=== PATIENT | male | born 1965 | race Caucasian/White ===

== ENCOUNTER → 2016-07-27 | Outpatient (CLI) | payer BC ==
[2016-07-27 11:26] LABS: BASOPHILS # (AUTO) 0.09 10*3/UL; BASOPHILS % (AUTO) 1.1 % (0-1); EOSINOPHILS % (AUTO) 2.5 % (0-8); HEMATOCRIT 46.3 % (42.0-52.0); HEMOGLOBIN 16.1 g/dL (14.0-18.0); IMM GRAN % (AUTO) 0.1 % (0-5); IMM GRAN# (AUTO) 0.01 10*3/UL; LYMPHOCYTES # (AUTO) 1.75 10*3/uL; LYMPHOCYTES % (AUTO) 21.8 % (10-50); MEAN CORPUSCULAR HEMOGLOBIN 30.6 PG (27-31); MEAN CORPUSCULAR HGB CONC 34.8 g/dL (33-37); MEAN PLATELET VOLUME 9.4 FL (7.4-12.2); MONOCYTES # (AUTO) 0.72 10*3/UL (0.3-0.8); NEUTROPHILS # (AUTO) 5.26 10*3/UL; NEUTROPHILS % (AUTO) 65.5 % (50-80); RDW COEFFICIENT OF VARIATION 13.7 % (11.5-14.5); RED BLOOD COUNT 5.27 10^6/uL (4.70-6.10); WHITE BLOOD COUNT 8.03 10^3/uL (4.8-10.8)
[2016-07-27 11:35] LABS: ASPARTATE AMINO TRANSFERASE 30 IU/L (21-57); BILIRUBIN,TOTAL 0.8 mg/dL (0.3-1.2); BLOOD UREA NITROGEN 17 mg/dL (7-22); BUN/CREATININE RATIO 24.28 (6-20); CHLORIDE 106 meq/L (98-112); CREATININE 0.7 mg/dL (0.70-1.50); EST GLOMERULAR FILTRATION > 60 (>60 ml/min/1.73m(2)); GLUCOSE 216 mg/dL (78-110); HDL CHOLESTEROL 41 mg/dL (40-150); POTASSIUM 3.9 meq/L (3.8-5.2); SODIUM 140 meq/L (135-145); TOTAL PROTEIN 6.3 g/dL (6.1-8.0); TRIGLYCERIDES 131 mg/dL (44-200)
[2016-07-27 11:36] LABS: HEMOGLOBIN A1C 8.79 % (4.2-6.0); MEAN BLOOD GLUCOSE (CALC) 206.707 mg/dL
[2016-07-27 12:05] LABS: PLATELET MORPHOLOGY COMMENT NORMAL MORPHOLOGY (NORM)
== END ==
LOC: LAB 11:10
PROVIDERS: ATTEND Family Medicine
DX: E10.65 Type 1 diabetes mellitus with hyperglycemia (principal); Z79.4 Long term (current) use of insulin; I10 Essential (primary) hypertension; R53.83 Other fatigue; K21.9 Gastro-esophageal reflux disease without esophagitis; Z96.41 Presence of insulin pump (external) (internal)
CPT/HCPCS: 36415; 80053; 80061; 83036; 84403; 84443; 85025

== ENCOUNTER 2016-08-28 12:15 | Inpatient (IN) | payer BC ==
[2016-08-28] MEDS ORDERED: ONDANSETRON 4 MG/2 ML VIAL IVP ONE (12:32)
[2016-08-28] MEDS ORDERED: Sodium Chloride 0.9% 1,000 ML PRIMARY IV ONE (12:32)
--- NOTE | 2016-08-28 12:37 | PDOC ---
Neuro Symptoms / Deficit HPI - General Chief Complaint: Neurological Complaints Stated Complaint: RIGHT SIDED NUMBNESS Date Seen by Provider: 08/28/16 Time Seen by Provider: 12:20 Source: POSITIVE: Patient, Spouse Exam Limitations: POSITIVE: No limitations Nurse's Notes Reviewed & Considered: Yes - History of Present Illness Initial Comments: Patient comes in with chief complaint of right-sided numbness. Patient was up this morning at 0500 playing his guitar, he became aware that his right side was becoming numb and had a sudden onset of weakness in his right hand. He comes in today at 12:30 PM for evaluation because of continued numbness, and feeling as though his head is fuzzy. He denies any headache, vision changes, chest pain, shortness breath, he does have a cough. He denies any fever or chills sweats, nausea vomiting or diarrhea. He denies hematuria or dysuria, no ataxia. Blood glucose on the patient's monitor is 525. Body Location Affected: REPORTS: Head, Other (Numbness of the right side of body.) Timing: REPORTS: Abrupt Duration: 4-6 hours Severity: Moderate Quality: REPORTS: Other (Numbness) Character of Deficit(s): REPORTS: Right (Right-sided numbness), New Weakness ( Right-sided weakness which has resolved.) Associated Symptoms: REPORTS: Trouble Concentrating Usual Ability to Walk/Stand: REPORTS: Walks w/o Assistance Usual Cognition: REPORTS: Alert & Oriented x3 Similar Symptoms Previously: No Recently seen/treated/hospitalized: No Any Prior Injuries Related to Current Complaint?: No - Patient Home Medications Home Medications: Home Medications Urine Acetone Test,Strips [Ketostix Reagent] 1 each QAM #1 box 08/21/15 Blood Sugar Diagnostic [Contour Next] 1 each Q2-3H #300 strip 09/26/15 Blood Sugar Diagnostic [Contour Next] 8 - 10 each QD #300 strip 09/26/15 Insulin, Lispro [Humalog] 1 - 80 unit SUBCUT QD #2 vial 05/28/16 Amlodipine Besylate 5 mg PO DAILY #90 tab 06/04/16 Simvastatin 1 tab PO DAILY #30 tab 06/04/16 Sildenafil Citrate [Revatio] 20 mg PO QD #30 tab 07/16/16 Lisinopril 1 tab PO BID #60 tab 07/17/16 Insulin Lispro Inj [Humalog Inj] Sample #1 07/23/16 Amitriptyline HCl 1 tab PO QHS #30 tab 07/28/16 Amlodipine Besylate 5 mg PO DAILY #30 tab 07/28/16 Gabapentin 1 tab PO QID #120 tab 08/21/16 - Patient Allergies Allergies/Adverse Reactions: Allergies Allergy/AdvReac Type Severity Reaction Status Date / Time Penicillins Allergy Anaphylaxis Verified 08/28/16 12:26 Past Medical History - heen HEENT History: Denies History Cardiovascular History: Denies History Respiratory History: Denies History Gastrointestinal History: Denies History Genitourinary History: Denies History Endocrine History: Type 1 Diabetes Musculoskeletal History: Denies History Neurological History: Denies History Blood Disorders: Denies History Psychiatric History: Denies History Cancer History: Denies History History of MDRO: No Alcohol Use: None Substance Use Type: None Previous Surgical History: Yes Type / Date of Surgery: APPE, LEFT HAND SURGERY Significant Family History: No pertinent family hx ROS - Limitations ROS Limitations: No Limitations Constitution: REPORTS: Denies Symptoms Cardiovascular: REPORTS: Denies Cardiac Symptoms Respiratory: REPORTS: Denies Resp Symptoms Neurological: REPORTS: Numbness, Weakness Gastrointestinal: REPORTS: Denies GI Symptoms Endocrine: REPORTS: Elevated Glucose (hx DMI) Musculoskeletal: REPORTS: Denies MS Symptoms Genitourinary: REPORTS: Denies Symptoms Eyes: REPORTS: Denies Symptoms ENT: REPORTS: Denies Symptoms Skin: REPORTS: Denies Skin Symptoms Lympathic: REPORTS: Denies Lympathic Symptoms Immunologic: POSITIVE: Denies Symptoms Psychiatric: POSITIVE: Denies Psych Symptoms Neuro Symptoms / Deficit Exam - General Appearance General Appearance: POSITIVE: No Acute Distress, Alert - HEENT HEENT: POSITIVE: Head Inspection Nml, Eyes Inspection Nml, Ears Inspection Nml, Nose Inspection Nml, Oral/Dental Inspect. Nml, Pharynx Inspect. Nml, PERRL, EOMI - Pupil Size Pupil Size: 4 mm: Bilateral - Neuro / Psych Higher Functions: POSITIVE: Oriented to Person, Oriented to Place, Oriented to Time, Normal Speech, Normal Cognition, Appropriate Mood, Appropriate Affect Cranial Nerves: POSITIVE: Normal As Tested, No Evidence of Acute CVA Cerebellar: POSITIVE: Normal As Tested Peripheral Exam: POSITIVE: Motor Normal, Reflexes Normal, Altered Light-Touch, Altered Pin-Prick Reflexes: Patellar (R): 3+, Patellar (L): 3+, Radial (R): 3+, Radial (L): 3+ - Neck Neck: POSITIVE: Supple, Non-Tender - Respiratory Respiratory: POSITIVE: No Respiratory Distress, Breath Sounds Normal - Cardiovascular Cardiovascular: POSITIVE: Regular Rate & Rhythm Murmur: Diastolic: Grade 2 - Abdomen Abdomen: Soft: (All Quadrants), Normal Bowel Sounds: (All Quadrants), Denies Tenderness: (All Quadrants) - Skin Skin: POSITIVE: Intact, Normal For Race, Warm, Dry, No Rash - Extremities Extremity: Non-Tender: (All Extremities), Normal ROM: (All Extremities), Normal Inspection: (All Extremities) Neuro Symptom/Deficit Progress - Results Reviewed by me Xrays/CTs/US Reviewed by me: Yes Discussed with Radiologist: Yes Lab Results Reviewed: Yes Lab Results:: Laboratory Results 08/28/16 Range/Units 12:37 WBC 6.19 (4.8-10.8) 10^3/uL RBC 5.56 (4.70-6.10) 10^6/uL Hgb 16.5 (14.0-18.0) g/dL Hct 49.0 (42.0-52.0) % MCV 88.1 (80-90) FL MCH 29.7 (27-31) PG MCHC 33.7 (33-37) g/dL RDW Std Deviation 44.7 (39-50) fL RDW Coeff of Erm[place] 14.0 (11.5-14.5) % Plt Count 277 (140-350) 10*3/uL MPV 9.3 (7.4-12.2) FL Immature Gran % (Auto) 0.2 (0-5) % Neut % (Auto) 63.9 (50-80) % Lymph % (Auto) 23.1 (10-50) % [place] % (Auto) 10.3 (5-15) % Eos % (Auto) 1.5 (0-8) % Baso % (Auto) 1.0 (0-1) % Immature Gran # (Auto) 0.01 10*3/UL Neut # (Auto) 3.96 10*3/UL Lymph # (Auto) 1.43 10*3/uL [place] # (Auto) 0.64 (0.3-0.8) 10*3/UL Eos # (Auto) 0.09 10*3/UL Baso # (Auto) 0.06 10*3/UL WBC Morphology Comment Normal morphology (NORM) Plt Morphology Comment Normal morphology (NORM) RBC Morph Comment Normal morphology (NORM) Sodium 137 (135-145) meq/L Potassium 4.5 (3.8-5.2) meq/L Chloride 104 (98-112) meq/L Carbon Dioxide 24 (23-33) meq/L Anion Gap 9 (5-20) BUN 18 (7-22) mg/dL Creatinine 0.9 (0.70-1.50) mg/dL Estimated GFR > 60 (>60 ml/min/1.73m(2)) BUN/Creatinine Ratio 20.00 (6-20) Glucose 488 H* (78-110) mg/dL Calculated Osmolality 307.0 H (267-292) mOsm/kg Calcium 9.4 (8.7-10.7) mg/dL Magnesium 2.0 (1.6-2.4) mg/dL Total Bilirubin 0.4 (0.3-1.2) mg/dL AST 35 (21-57) IU/L ALT 40 (21-72) IU/L Alkaline Phosphatase 65 (38-126) IU/L Total Protein 6.4 (6.1-8.0) g/dL Albumin 3.7 (3.5-4.8) g/dL Globulin 2.6 (2.50-4.10) g/dL Albumin/Globulin Ratio 1.40 (1.3-2.0) mg/g TSH 1.44 (0.2700-4.2000) uIU/mL Free T4 1.06 (0.93-1.71) ng/dL - Patient's Progress Pain Medication Addressed: POSITIVE: Not Applicable Re-Examine Time:: 15:16 Status: POSITIVE: Improved MDM / ED Course: Patient brought into the emergency Department, examined, an IV was started, blood sent to the lab for studies, imaging was obtained. Laboratory findings: MRI shows acute bland lacunar infarct of the posterior limb left internal capsule and adjacent area in the thalamus. Laboratory findings show hyperglycemia with blood glucose of 400. Assessment: Acute stroke left internal capsule. Plan: Admission. During the patient's time here in the emergency department he was started on Plavix. CVA/Syncope Quality Measure Initiative: POSITIVE: NIH Stroke Scale (Disclose a 1 for loss of sensation on the affected right side.) - Consult Consulting MD will see pt:: POSITIVE: [facility] [place] Admit Counseled: POSITIVE: Patient, RE: Lab Results, RE: Radiology Results, RE: DX Patient Care Time - Estimated PCT Patient Care Time (In Minutes): 45 Vital Signs - Recent Vital Signs Vital Signs: Vital Signs (Last 8 hours) Temp Pulse Resp BP Pulse Ox 08/28/16 12:16 97.3 F 73 14 178/98 96 - VS Reviewed Vital Signs Reviewed: Yes Discharge Clinical Impression: Cerebrovascular accident Discharge Disposition: Admit to Observation Condition: Stable Patient Instructions Given at Discharge: Ischemic Stroke (GEN) Date Decision to Admit to Inpatient: 08/28/16 Time Decision to Admit to Inpatient: 15:20
[2016-08-28 12:46] LABS: BASOPHILS # (AUTO) 0.06 10*3/UL; EOSINOPHILS % (AUTO) 1.5 % (0-8); HEMOGLOBIN 16.5 g/dL (14.0-18.0); IMM GRAN % (AUTO) 0.2 % (0-5); IMM GRAN# (AUTO) 0.01 10*3/UL; LYMPHOCYTES # (AUTO) 1.43 10*3/uL; LYMPHOCYTES % (AUTO) 23.1 % (10-50); MEAN CORPUSCULAR HEMOGLOBIN 29.7 PG (27-31); MEAN CORPUSCULAR HGB CONC 33.7 g/dL (33-37); MEAN PLATELET VOLUME 9.3 FL (7.4-12.2); MONOCYTES # (AUTO) 0.64 10*3/UL (0.3-0.8); MONOCYTES % (AUTO) 10.3 % (5-15); NEUTROPHILS # (AUTO) 3.96 10*3/UL; NEUTROPHILS % (AUTO) 63.9 % (50-80); RED BLOOD COUNT 5.56 10^6/uL (4.70-6.10); WHITE BLOOD COUNT 6.19 10^3/uL (4.8-10.8)
[2016-08-28 12:55] LABS: PLATELET MORPHOLOGY COMMENT NORMAL MORPHOLOGY (NORM)
[2016-08-28 12:58] LABS: ASPARTATE AMINO TRANSFERASE 35 IU/L (21-57); BILIRUBIN,TOTAL 0.4 mg/dL (0.3-1.2); BLOOD UREA NITROGEN 18 mg/dL (7-22); CALCIUM 9.4 mg/dL (8.7-10.7); CHLORIDE 104 meq/L (98-112); CREATININE 0.9 mg/dL (0.70-1.50); EST GLOMERULAR FILTRATION > 60 (>60 ml/min/1.73m(2)); POTASSIUM 4.5 meq/L (3.8-5.2); SODIUM 137 meq/L (135-145); TOTAL PROTEIN 6.4 g/dL (6.1-8.0)
[2016-08-28] MEDS ORDERED: Famotidine Inj 20 MG in Normal Saline Flush 10 ML IVP ONE (13:04)
[2016-08-28 13:15] LABS: FREE T4 (FREE THYROXINE) 1.06 ng/dL (0.93-1.71)
[2016-08-28 13:26] LABS: GLUCOSE 488 mg/dL (78-110)
--- NOTE | 2016-08-28 13:46 | DI ---
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 Previous Exam: None at this facility. PA and lateral views of the orbits are submitted. There is no metallic foreign body in the confines o f either orbit. Reading: Normal screening views of the orbits.
--- NOTE | 2016-08-28 14:25 | DI ---
MR ANGIOGRAPHY OF THE [place], 08/28/2016 12:32 PM: Clinical History: Numbness and weakness on the right side. Previous Exam: None at this facility. High resolution axial 3D thin slice time of flight scans are performed for the arterial phase. 3D MIP S reconstructions are obtained. Motion artifacts are noted particularly at the level of the M3 branch es. The left vertebral artery is dominant. There is no basilar tip aneurysm or aneurysm arising from the vertebral-basilar branches. There are no identifiable posterior communicating arteries. The anterior communicating artery is not visualized. The A1and A2, and the M1 through proximal M3 branches bilater ally are normal. Reading: Normal MR angiogram scan of the [place].
--- NOTE | 2016-08-28 14:37 | DI ---
MRI BRAIN SCAN WITHOUT CONTRAST, 08/28/2016 12:32 PM: Clinical History: Right-sided numbness and weakness. Previous Exam: None at this facility. Sequences: Sagittal T1; Axial ANGELICA T2 and FLAIR. Axial diffusion weighted images with ADC mapping were also performed. Motion artifacts are present on several sequences. The 4th, 3rd, and lateral ventricles are of normal size, position, and contour for this patient's age . There is congenital cortication of the body of the left lateral ventricle, a normal variant. There is increased signal intensity in the posterior limb of the left internal capsule and also in the the adjacent area of the left thalamus. ADC mapping shows a hypointense area indicating this is an acute bland lacunar infarct. There is a single punctate 4 mm diameter hyperintensity located in the white m atter of the right frontal lobe of uncertain significance. There are no extracerebral mantels or shif t of the midline structures. The paranasal sinuses are normal. There is a mass measuring about 3 cm i n diameter on the superior aspect of the skull just at the level of the coronal suture. This is of hi gh signal intensity on the T1-weighted sequences. This is not well visualized on the axial sequences but does appear to be hyperintense on the T2-weighted scans and of low signal intensity on the FLAIR scans indicating this is probably a lipoma. Readin. Acute bland lacunar infarct involving the posterior limb of the left internal capsule and the adj acent area in the thalamus. This would explain the patient's clinical symptoms. 2. There is a single focus of hyperintensity measuring 4 mm located in the white matter of the right frontal lobe in the significance of this finding is uncertain. 3. There is a mass in the scalp toward the coronal suture in the midline that probably represents a lipoma.
[2016-08-28] MEDS ORDERED: CLOPIDOGREL BISULFATE 300 MG TABLET PO ONE (15:13)
[2016-08-28] MEDS ORDERED: Insulin Lispro Flexpen 300 UNIT/3 ML INSULN.PEN SUBCUT ONE (15:43)
[2016-08-28] MEDS ORDERED: Insulin Sliding Scale Protocol SUBCUT PRN ×2 (15:43→16:40)
[2016-08-28] MEDS ORDERED: Glucagon Inj Vial 1 MG/ML VIAL IM PRN ×2 (15:43→16:40)
[2016-08-28] MEDS ORDERED: NORMAL SALINE 10 ML SYRINGE FLUSH IVP PRN (15:43)
[2016-08-28] MEDS ORDERED: DEXTROSE 31 GM GEL PO PRN ×2 (15:43→16:40)
[2016-08-28] MEDS ORDERED: DEXTROSE 50%-WATER SYRINGE 50 ML SYRINGE IVP PRN ×2 (15:43→16:40)
[2016-08-28] MEDS ORDERED: Insulin Lispro Flexpen 300 UNIT/3 ML INSULN.PEN SUBCUT SCH ×2 (16:00→21:00)
--- NOTE | 2016-08-28 16:14 | DI ---
MR ANGIOGRAM OF THE NECK, 08/28/2016 12:32 PM: Clinical History: Numbness and weakness on the right side. The MRI brain scan performed today shows a left lacunar infarct in the posterior limb of the internal capsule. Previous Exam: None at this facility. Axial 3D TOF and coronal T-SLIP images are reconstructed into a 3D MIP format. No IV contrast was use d. The coronal T-SLIP images are of very good to excellent quality. The axial 3-D [id number] imag es are degraded because of substantial motion artifacts. Scans are performed from below the sternal notch to of the neck to the base of the skull without cont rast. The origins of the carotid and vertebral arteries are not well visualized. The common carotid arterie s are normal from chest above their origins to the bifurcations. The internal and external carotid ar teries in the neck region are normal. The internal carotid arteries from the base of the skull are no rmal. Both vertebral arteries are visualized to the base of the skull and are normal. The left verteb ral artery is the dominant vessel. READIN. Technically difficult exam because of patient movement most likely related to the acute infarct. 2. The carotid arteries and vertebral arteries are visualized from just above their respective origi ns to the base of the skull and are normal.
[2016-08-28] MEDS ORDERED: Insulin Glargine SoloStar Inj 100 UNIT/ML INSULN.PEN SUBCUT ONE (16:36)
--- NOTE | 2016-08-28 17:12 | PDOC ---
History and Physical - History of Present Illness Date and Time of Service: 08/28/2016, 1710 Chief Complaint: Right-sided weakness History of Present Illness: This very pleasant 51-year-old male who has underlying diabetes mellitus, on pump therapy, tobacco abuse, hypertension, and hypercholesterolemia, who is accompanied by his girlfriend of 7 months and a domestic relationship that comes in complaining of right sided weakness. He states that he got home from work at around 2 or 3 AM and picked up his guitar play. He notices right side went numb and he was discoordinated. He said his guitar down, waited 20 minutes and went to bed. When he woke up at around 11, he told his girlfriend about his symptoms and she stated to him that he should come in for evaluation. Here he had a brain MRI and MRA of the head and neck. The MRA studies were negative for carotid artery disease and disease in the [place] of [place]. Brain MRI showed a left internal capsular stroke. He's never had a stroke before. He did not have any preceding headache, fever, chills, nausea or vomiting. He' s had some intermittent word finding problems with some slurring but has a symmetric smile and tongue movements. He has some numbness in his right tongue , his right arm feels discoordinated, and he apparently is dragging his right foot as well. He smokes a half pack per day. His father had a stroke at age 80. The patient does not drink alcohol. He did not try any interventions prior to coming into the emergency room. Nothing seems to make him feel worse or feel better. Past Medical History Medical History: Diabetes mellitus, on pump therapy. Hypertension. Tobacco abuse. Hypercholesterolemia Surgical History: Appendectomy. Left carpal tunnel repair Pertinent Family History: Father had a stroke in his 80s. 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 He is in a committed relationship that is considered a domestic partnership with his girlfriend. He tells me that she would be the person he would like to make medical decisions for him if he could not for himself. The patient does not have any children of his own. Tobacco Use: Current Every Day Smoker Do you dip or chew tobacco: No Substance Use Type: None Alcohol Use: None Medication / Allergies Home Medications: Home Medications Medication Instructions Recorded Confirmed Type Urine Acetone Test,Strips 1 each QAM #1 box 08/21/15 08/28/16 Clinic [Ketostix Reagent] Blood Sugar Diagnostic [Contour 1 each Q2-3H #300 strip 09/26/15 Clinic Next] Blood Sugar Diagnostic [Contour 8 - 10 each QD #300 strip 09/26/15 Clinic Next] Insulin, Lispro [Humalog] 1 - 80 unit SUBCUT QD #2 vial 05/28/16 08/28/16 Clinic Simvastatin 1 tab PO DAILY #30 tab 06/04/16 08/28/16 Clinic Sildenafil Citrate [Revatio] 20 mg PO QD #30 tab 07/16/16 08/28/16 Clinic Lisinopril 1 tab PO BID #60 tab 07/17/16 08/28/16 Clinic Amitriptyline HCl 1 tab PO QHS #30 tab 07/28/16 08/28/16 Clinic Amlodipine Besylate 5 mg PO DAILY #30 tab 07/28/16 08/28/16 Clinic Gabapentin 1 tab PO QID #120 tab 08/21/16 08/28/16 Clinic Allergies/Adverse Reactions: Allergies Allergy/AdvReac Type Severity Reaction Status Date / Time Penicillins Allergy Anaphylaxis Verified 08/28/16 16:11 Review of Systems - Review of Systems All Systems: Reviewed & No Additional Complaints Except as Stated (I did a 12 point review systems and other than that discussed in history present illness it was negative other than that listed below.) - Integumentary Integumentary: REPORTS: Other (Has a chronic lump in his neck that on palpation is consistent with a sebaceous cyst. This is on the right side.) - Neurological Neurologic: REPORTS: Weakness, Difficulty Walking, Incoordination, See HPI Exam - Vitals Vital Signs: Vital Signs Temperature 97.5 F Temperature Source Oral Pulse Rate [Pulse Oximeter] 77 Respiratory Rate 18 Pulse Ox 97 Oxygen Delivery Method Room Air Height 6 ft 1 in Weight 192 lb 12.8 oz Vital Signs - Last Taken Temperature 97.5 F 08/28/16 16:14 Pulse Rate 77 08/28/16 16:14 Respiratory Rate 18 08/28/16 16:14 Blood Pressure 178/98 08/28/16 12:16 Pulse Ox 97 08/28/16 16:14 On room air. - General General Appearance: POSITIVE: No Acute Distress, Cooperative - Head Head Exam: POSITIVE: Normal Inspection, Normocephalic, Atraumatic - Eye Eye Exam: POSITIVE: No Scleral Icterus - ENT ENT Exam: POSITIVE: Mucous Membranes Moist - Neck Neck Exam: POSITIVE: Normal Inspection, No Tenderness, No Thyromegaly - Respiratory Respiratory Exam: POSITIVE: Clear to Auscultation - Bilaterally, Breathing Non Labored, Normal to Percussion and Palpation - Cardiovascular Cardiovascular Exam: POSITIVE: RRR, No Murmur, No Clicks, No Gallops, No Rubs, No JVD Additional Cardiovascular Details: No carotid bruits - GI/Abdominal GI/Abdominal Exam: POSITIVE: Normal Bowel Sounds, Non Tender, Non Distended, Soft - Rectal Rectal Exam: POSITIVE: Deferred - External Exam: POSITIVE: Deferred Exam: POSITIVE: Deferred - Extremities Extremities Exam: POSITIVE: No Clubbing Present, No Edema Present, No Cyanosis Present - Back Back Exam: POSITIVE: Normal Inspection, No CVA Tenderness - Neurological Neurological Exam: POSITIVE: Alert, Oriented x 3, No Facial Droop Additional Neurological Exam Details: Normal deep tendon reflexes on the right and the left. Had some discoordination of his right arm. +4 over 5 muscle strength for right arm and right leg. Numbness sensation on his lips on the right side. Some words were occasionally slurred. No facial droop. Tongue movements negative for deviation. Extraocular muscles appear intact on standard H muscle testing. - Psychiatric Psychiatric Exam: POSITIVE: Normal Affect, Normal Mood - Integumentary Integumentary Exam: POSITIVE: Normal Color, Warm, Dry, Intact Results - Labs CBC and BMP: 08/28/16 12:37 08/28/16 12:37 Labs - Last 24 Hours: Laboratory Results 08/28/16 Range/Units 12:37 WBC 6.19 (4.8-10.8) 10^3/uL RBC 5.56 (4.70-6.10) 10^6/uL Hgb 16.5 (14.0-18.0) g/dL Hct 49.0 (42.0-52.0) % MCV 88.1 (80-90) FL MCH 29.7 (27-31) PG MCHC 33.7 (33-37) g/dL RDW Std Deviation 44.7 (39-50) fL RDW Coeff of [place] 14.0 (11.5-14.5) % Plt Count 277 (140-350) 10*3/uL MPV 9.3 (7.4-12.2) FL Immature Gran % (Auto) 0.2 (0-5) % Neut % (Auto) 63.9 (50-80) % Lymph % (Auto) 23.1 (10-50) % [place] % (Auto) 10.3 (5-15) % Eos % (Auto) 1.5 (0-8) % Baso % (Auto) 1.0 (0-1) % Immature Gran # (Auto) 0.01 10*3/UL Neut # (Auto) 3.96 10*3/UL Lymph # (Auto) 1.43 10*3/uL [place] # (Auto) 0.64 (0.3-0.8) 10*3/UL Eos # (Auto) 0.09 10*3/UL Baso # (Auto) 0.06 10*3/UL WBC Morphology Comment Normal morphology (NORM) Plt Morphology Comment Normal morphology (NORM) RBC Morph Comment Normal morphology (NORM) Sodium 137 (135-145) meq/L Potassium 4.5 (3.8-5.2) meq/L Chloride 104 (98-112) meq/L Carbon Dioxide 24 (23-33) meq/L Anion Gap 9 (5-20) BUN 18 (7-22) mg/dL Creatinine 0.9 (0.70-1.50) mg/dL Estimated GFR > 60 (>60 ml/min/1.73m(2)) BUN/Creatinine Ratio 20.00 (6-20) Glucose 488 H* (78-110) mg/dL Calculated Osmolality 307.0 H (267-292) mOsm/kg Calcium 9.4 (8.7-10.7) mg/dL Magnesium 2.0 (1.6-2.4) mg/dL Total Bilirubin 0.4 (0.3-1.2) mg/dL AST 35 (21-57) IU/L ALT 40 (21-72) IU/L Alkaline Phosphatase 65 (38-126) IU/L Total Protein 6.4 (6.1-8.0) g/dL Albumin 3.7 (3.5-4.8) g/dL Globulin 2.6 (2.50-4.10) g/dL Albumin/Globulin Ratio 1.40 (1.3-2.0) mg/g TSH 1.44 (0.2700-4.2000) uIU/mL Free T4 1.06 (0.93-1.71) ng/dL - EKG Data -: EKG Interpreted by Me (I have ordered an EKG and I am waiting for the results.) - Imaging Status: Report Reviewed by Me (The brain MRI scan is notable for left-sided internal capsule stroke. The MRA scans of the head and neck are normal. There was some motion artifact on the MRA of the neck.) Assessment and Plan - Patient Problems (1) Cerebrovascular accident Current Visit: Yes Status: Acute (2) Dehydration Current Visit: No Status: Acute (3) HTN, goal below 130/80 Current Visit: Yes Status: Acute (4) Hypercholesteremia Current Visit: Yes Status: Acute (5) Tobacco abuse Current Visit: Yes Status: Acute - Assessment / Plan Additional Assessment/Plan Details: admit the patient permissive hypertension high dose statin plavix (has an intolerance to aspirin) use pump for diabetes management with nutrition consult. The patient had pump in MRI, so glucose monitoring sensor is not functioning, but pump is still functioning check lipid panel tomorrow imaging does not indicate any carotid artery disease, but with motion on MRA of neck, will get ultrasound of carotids to confirm ECHO tele monitoring and EKG (done prior to completion of this document with NSR on my view of the tracing, no ST elevations. some pronounced QRS complexes in V2 and V3 and V4) PT and OT bedside swallow eval FULL CODE patient and girlfriend agreed with the plan.
[2016-08-28] MEDS: GABAPENTIN 300 MG CAPSULE PO SCH ×2 (17:26→21:26)
[2016-08-28] MEDS: NICOTINE 21 MG /DAY PATCH TRANSDERM SCH (17:26)
--- NOTE | 2016-08-28 17:27 | EKG ---
[address] [address] Measurements Intervals [place] Rate: 61 P: 57 UT: 194 QRS: 81 QRSD: 107 T: 49 QT: 392 QTc: 396 Interpretive Statements SINUS RHYTHM INCOMPLETE RIGHT BUNDLE BRANCH BLOCK [90+ ms QRS DURATION, TERMINAL R IN V1/V2, 40+ ms S IN I/aVL/V4/V5/V6] No previous ECG available for comparison Electronically Signed On 08-29-16 15:52:12 MST by Last Fierro MD [email or web address]
[2016-08-28] MEDS: ACETAMINOPHEN 325 MG TABLET PO PRN (19:33)
[2016-08-28] MEDS: ATORVASTATIN 40 MG TABLET PO SCH (21:26)
[2016-08-29] MEDS: ACETAMINOPHEN 325 MG TABLET PO PRN (02:55)
[2016-08-29 06:14] LABS: PROTHROMBIN TIME 10.2 secs (9.7-11.4)
[2016-08-29 06:20] LABS: ASPARTATE AMINO TRANSFERASE 37 IU/L (21-57); BILIRUBIN,TOTAL 0.5 mg/dL (0.3-1.2); BLOOD UREA NITROGEN 19 mg/dL (7-22); BUN/CREATININE RATIO 27.14 (6-20); CALCIUM 8.4 mg/dL (8.7-10.7); CHLORIDE 108 meq/L (98-112); CREATININE 0.7 mg/dL (0.70-1.50); EST GLOMERULAR FILTRATION > 60 (>60 ml/min/1.73m(2)); GLUCOSE 127 mg/dL (78-110); HDL CHOLESTEROL 36 mg/dL (40-150); POTASSIUM 4.1 meq/L (3.8-5.2); SODIUM 139 meq/L (135-145); TOTAL PROTEIN 5.9 g/dL (6.1-8.0); TRIGLYCERIDES 51 mg/dL (44-200)
[2016-08-29] MEDS: GABAPENTIN 300 MG CAPSULE PO SCH ×4 (08:05→20:32)
[2016-08-29] MEDS: ENOXAPARIN SODIUM 40 MG/0.4 ML SYRINGE SUBCUT SCH (08:05)
[2016-08-29] MEDS: CLOPIDOGREL 75 MG TABLET PO SCH (08:05)
[2016-08-29] MEDS ORDERED: NICOTINE 21 MG /DAY PATCH TRANSDERM SCH (09:00)
--- NOTE | 2016-08-29 12:19 | PT.PROG ---
Progress Note Progress Note: S: Pt reports he is feeling much better today than he did yesterday. States he is able to walk w/o dragging R foot and is not having difficulty w/ speech. O: This morning's session focused on improving LE strength, endurance, and balance, as well as UE ROM. Pt began today's session performing Nustep x 5 min. Pt performed recumbent bike x 5 min. Pt performed balance grid star drill x 5 rounds w/ B LEs w/ verbal cueing and CGA for safety. Pt performed weight shifting on trampoline x 3 min w/ CGA for safety to work on improving balance. Pt performed SLS 3 x 20 sec on trampoline w/ B UE support and verbal cueing. Pt performed box step up on #3 box 2 x 10 bilaterally w/ CGA. Pt finished w/ UE wall pulleys x 5 min. Pt ambulated ~200 to elevator and to room w/ ASSURANCE ASSOCIATE. A: Pt was able to complete all exercises during this morning's session. Pt demonstrated decreased step length and slight drop of R foot w/ gait. Pt stated he felt mildly winded a couple times during the session which is expected secondary to pt's inactivity over the past day. Pt reported he felt good at the end of the session. Continues to benefit from skilled PT to work toward discharge. P: Continue to see pt 2x/day to improve strength, endurance and balance as he works toward discharge. Francois Huntley, SPT
--- NOTE | 2016-08-29 13:17 | DI ---
HISTORY: Stroke. COMPARISON: None available. TECHNIQUE: Sonographic images were obtained through the carotids, bilaterally. FINDINGS: Examination demonstrates some mild intimal thickening. There is no elevated peak systolic velocity. There is normal antegrade flow within both vertebral arteries. There are normal ICA/CCA ratios. IMPRESSION: 1. No hemodynamically significant stenosis. NOTE: The interpreting Radiologist was not present at the time of ultrasound interrogation.
[2016-08-29] MEDS: NICOTINE 21 MG /DAY PATCH TRANSDERM SCH (15:00)
--- NOTE | 2016-08-29 16:03 | PTI REPORT ---
Thank you for the referral of Bronson Wells. He was seen on 08/28/16 for an inpatient evaluation secondary to a CVA. SUBJECTIVE: The patient is a 51-year-old male who presented to the ER this morning with right sided hand and face weakness and numbness. The patient stated that around 5-5:30 this morning he was playing guitar when he started to notice the numbness and weakness in his right upper extremity. The patient has not previously had these types of symptoms. The patient was also getting some numbness and weakness into his right lower extremity at the time of the start of the symptoms. During our evaluation the patient states that he still has weakness and numbness in his right upper extremity and face but none in his right lower extremity. The patient lives here in [place]. 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 PAST MEDICAL HISTORY: Past medical history can be found in the patient's medical record. OBJECTIVE FINDINGS: General observations: The patient is alert and oriented to setting upon PT arrival. The patient was just finishing a consult with business intelligence manager prior to our PT exam. Range of motion: The patient demonstrated bilateral upper extremity and bilateral lower extremity range of motion within functional limits. Strength: The patient's right shoulder was strength tested as 3/5 and left shoulder was 4/5. Bilateral elbow strength was 4/5. The patient did have a marked weakness with right throw out clerk vs. left throw out clerk strength. The patient demonstrated bilateral hip and knee strength of 4+/5, right ankle strength of 3+ /5, and left ankle strength of 5/5. Pain: The patient did have pain in the right shoulder with strength testing. Transfers: The patient was able to independently perform a sit to stand transfer. The patient was able to maintain a standing position for two minutes without any assistance or any marked sway. The patient was able to independently and safely perform a stand to seated transfer. Ambulation: The patient ambulated x25 feet with stand by assist x1 for safety. He did demonstrate some dragging of his right foot at times during the ambulation. Balance: The patient was able to stand eyes open in Romberg stance x1 minute without marked sway or loss of balance. With eyes closed in Romberg, the patient had a marked increase in his sway and did require contact guard assist x1 for safety. The patient was able to get into a tandem position with both the right foot in front and the left foot in front. The patient demonstrated marked sway and did require contact guard assist x1 for safety with more challenging balance activities. ASSESSMENT: The patient has good rehab potential. Problem List: Right sided weakness right upper extremity more involved vs. lower extremity Difficulties with more challenging balance activities secondary to patient remarks of weakness Short-Term Goals: To be met by discharge from inpatient: Patient will be able to ambulate at least 200 feet without assistive device and do so safely without any balance concerns. Patient will be able to ascend and descend a flight of stairs independently and safely without balance concerns. Patient will be able to perform challenging balance stances such as Romberg eyes closed and tandem without loss of balance to demonstrate decreased fall risk. Long-Term Goals: To be met following discharge from inpatient: Patient may be seen by outpatient physical therapy if deemed necessary upon discharge. TREATMENT PLAN: Patient will be seen B.I.D during the week and one time per day over the weekend as an inpatient for strengthening and balance. INITIAL TREATMENT: Treatment today consisted of the initial evaluation activities only. TUAN
--- NOTE | 2016-08-29 17:03 | PT.PROG ---
Progress Note Progress Note: S. Patient stated that he is tired this afternoon however he would go to the therapy gym. O. Patient ambulated 175 feet to the therapy gym where he performed standing balance exercises in the form of; balance grid, tandem stance, naga step overs with small and medium hurdles, airex balance with ball toss. Patient used the nu-step x 5 minutes then was left with OT for further therapy. A. Patient tolerated exercises well, he was able to perform all tasks asked of him. He continues to struggle with coordination and balance however he reported that the tasks that he was performing he would not have been able to do yesterday. Patient would continue to benefit from skilled therapy at this time. P. Continue POC.
[2016-08-29] MEDS: traMADol 50 MG TABLET PO PRN (17:38)
--- NOTE | 2016-08-29 18:09 | PDOC(PROG) ---
Date and Time of Service: 08/29/2016, 1805 Interval History: I spoke with OT, the patient has about 50% strength in his right upper extremity , some mild dragging of the right lower extremity, and the patient continues to complain of numbness in his right arm. He has shoulder pain that seems to be radiating downwards in his arm. He had a fall a while back, and has not had any x-rays. His significant other states that he was complaining of shoulder pain at that time and that was about a month ago. No chest pain and no shortness breath. No nausea or vomiting. Objective : Data - Labs CBC and BMP: 08/28/16 12:37 08/29/16 05:23 Labs - Last 24 Hours: Laboratory Results 08/29/16 Range/Units 05:23 PT 10.2 (9.7-11.4) secs INR 0.99 (0.00-5.90) N/A Sodium 139 (135-145) meq/L Potassium 4.1 (3.8-5.2) meq/L Chloride 108 (98-112) meq/L Carbon Dioxide 23 (23-33) meq/L Anion Gap 8 (5-20) BUN 19 (7-22) mg/dL Creatinine 0.7 (0.70-1.50) mg/dL Estimated GFR > 60 (>60 ml/min/1.73m(2)) BUN/Creatinine Ratio 27.14 H (6-20) Glucose 127 H (78-110) mg/dL Calculated Osmolality 291.0 (267-292) mOsm/kg Calcium 8.4 L (8.7-10.7) mg/dL Total Bilirubin 0.5 (0.3-1.2) mg/dL AST 37 (21-57) IU/L ALT 48 (21-72) IU/L Alkaline Phosphatase 49 (38-126) IU/L Total Protein 5.9 L (6.1-8.0) g/dL Albumin 3.3 L (3.5-4.8) g/dL Globulin 2.6 (2.50-4.10) g/dL Albumin/Globulin Ratio 1.20 L (1.3-2.0) mg/g Triglycerides 51 (44-200) mg/dL Cholesterol 122 (120-200) mg/dL LDL Cholesterol, Calc 75.800 mg/dL VLDL Cholesterol 10 (0-40) mg/dL HDL Cholesterol 36 L (40-150) mg/dL Cholesterol/HDL Ratio 3.38 (0-4.0) RATIO - EKG Data Rate: Normal (Normal sinus rhythm on monitor.) Objective : Exam - General General Appearance: No Acute Distress, Cooperative Additional General Exam Details: Vital Signs - Last Taken Temperature 98.1 F 08/29/16 16:58 Pulse Rate 71 08/29/16 16:58 Respiratory Rate 18 08/29/16 16:58 Blood Pressure 151/95 08/29/16 16:58 Pulse Ox 93 08/29/16 16:58 - Head Head Exam: Normal Inspection, Normocephalic, Atraumatic - Eye Eye Exam: No Scleral Icterus - Respiratory Respiratory Exam: Clear to Auscultation - Bilaterally, Breathing Non Labored - Cardiovascular Cardiovascular Exam: RRR, No Murmur, No Clicks, No Gallops, No Rubs, No JVD - GI/Abdominal GI/Abdominal Exam: Normal Bowel Sounds, Non Tender, Non Distended, Soft - Rectal Rectal Exam: Deferred - External Exam: Deferred Exam: Deferred - Extremities Extremities Exam: No Clubbing Present, No Edema Present, No Cyanosis Present - Neurological Neurological Exam: Alert, Oriented x 3, No Facial Droop, Speech Intact / Clear Additional Neurological Exam Details: No slurring of words today. Muscle strength for upper extremity and lower extremity on the right are +4 over 5. Patient still has numbness in his right arm and the right side of his face and tongue. Assessment and Plan - Patient Problems (1) Cerebrovascular accident Current Visit: Yes Status: Acute (2) HTN, goal below 130/80 Current Visit: Yes Status: Acute (3) Hypercholesteremia Current Visit: Yes Status: Acute (4) Tobacco abuse Current Visit: Yes Status: Acute - Assessment / Plan Additional Assessment/Plan Details: We will get a modified barium swallow study with OT done on Thursday. Continue high-dose cholesterol, Plavix, and we will gradually on blood pressure medications back probably Thursday or Thursday, but for now continue permissive hypertension in the setting of this acute event. With the shoulder pain not like to get an x-ray to make sure there is no issues there. Tramadol for pain. Continue PT and OT.
[2016-08-29] MEDS: ATORVASTATIN 40 MG TABLET PO SCH (20:32)
[2016-08-30] MEDS: NICOTINE 21 MG /DAY PATCH TRANSDERM SCH (01:53)
[2016-08-30 07:24] VITALS: RESP 20
[2016-08-30] MEDS: CLOPIDOGREL 75 MG TABLET PO SCH (08:08)
[2016-08-30] MEDS: ENOXAPARIN SODIUM 40 MG/0.4 ML SYRINGE SUBCUT SCH (08:08)
[2016-08-30] MEDS: GABAPENTIN 300 MG CAPSULE PO SCH ×2 (08:08→12:41)
[2016-08-30] MEDS: traMADol 50 MG TABLET PO PRN (08:08)
[2016-08-30 12:44] VITALS: TEMP 98
--- NOTE | 2016-08-30 13:04 | OT.PROG ---
Progress Note Progress Note: S"Pt. stating his right shoulder pain was a 4/10. O:Pt's R shoulder K-taped and pt. okay too continue with therapy. Pt. seen from 09 to 5 and pt. completing sit to stand transfer from bed without AE with SBA. pt then ambulating from his room to therapy with SBA. Pt. then engaged in ther-ex on Nu-step and on resistance level 3 comleting ther-ex for 15 min of continuous ex's. Pt. then completed sit to stand transfer again without AE and ambulated back to his room wtih SBA and no episodes of LOB. A: Pt. stating increased comfort levels and R shoulder support following K taping. Pt. does not appear to have extensive residual deficits yet his coordination and processing speed are delayed and it is noted in his speech as well. P: Continue POC. Yumi Wills OTD, OTR/L
--- NOTE | 2016-08-30 13:55 | DCSUMMARY ---
Hospitalization Summary Admit Date: 08/28/16 Discharge Date: 08/30/16 Primary Diagnosis:: left cerebrovascular accident, right hemiparesis Hospital Course: This very pleasant 51-year-old male with underlying diabetes mellitus type I, tobacco abuse, and hypertension, who came in with a stroke with right hemiparesis, numbness, and was admitted for further evaluation and management. 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 The patient was placed on Plavix, physical therapy was ordered, occupational therapy was ordered, and he is regaining his strength it's probably at around 75% back to normal now. Numbness is decreasing. We did permissive hypertension but will now start to resume his blood pressure medications. The patient is intolerant of aspirin so we will continue to avoid that due to his intolerance. I had the patient walk around the rice today and he did that without any assistive devices and his balance appeared normal and his gait appeared normal. I think he should continue to do physical therapy outside the hospital, and follow with his primary care provider within a week. We work on smoking cessation, the patient wants to continue to do the nicotine patches outside hospital side prescribed a month worth of those. Blood sugars were managed with the patient's pump and the nutrition therapy helped the patient resume his pump therapy here. His blood sugars were well controlled through the hospital stay. Today, no completes of chest pain, no shortness breath, no nausea or vomiting, strength is improving, gait has improved, and patient is able to speak much more clearly and he would like to go home. Assessment and Plan: 1. As per discharge assessments noted 2. Disposition: Patient is discharged home 3. Condition on discharge, stable and improved. 4. Diet: regular diet/low cholesterol/low fat 5. Activities: resume normal activities 6. Follow-Up: 1. See Dr. Powell in a week 2. 7. Medications at the Time of Discharge: Home Medications Medication Instructions Recorded Confirmed Type Urine Acetone Test,Strips 1 each QAM #1 box 08/21/15 08/28/16 Clinic [Ketostix Reagent] Blood Sugar Diagnostic [Contour 1 each Q2-3H #300 strip 09/26/15 Clinic Next] Blood Sugar Diagnostic [Contour 8 - 10 each QD #300 strip 09/26/15 Clinic Next] Insulin, Lispro [Humalog] 1 - 80 unit SUBCUT QD #2 vial 05/28/16 08/28/16 Clinic Sildenafil Citrate [Revatio] 20 mg PO QD #30 tab 07/16/16 08/28/16 Clinic Lisinopril 1 tab PO BID #60 tab 07/17/16 08/28/16 Clinic Amlodipine Besylate 5 mg PO DAILY #30 tab 07/28/16 08/28/16 Clinic Gabapentin 1 tab PO QID #120 tab 08/21/16 08/28/16 Clinic Atorvastatin Calcium [Lipitor] 80 mg PO QPM #30 tablet 08/30/16 Rx Clopidogrel [Plavix] 75 mg PO DAILY #90 tab 08/30/16 Rx Nicotine 21mg Patch [Nicoderm CQ 21 mg TD QD #30 patch 08/30/16 Rx 21mg Patch] 8. Time, care, counseling and coordination of care for this discharge is less than 30 minutes. Exam - Vitals Vital Signs: Vital Signs Temperature 98.0 F Temperature Source Temporal Artery Scan Pulse Rate [Telemetry] 70 Pulse Rate [Apical] 78 Pulse Rate [Pulse Oximeter] 69 Pulse Rate 76 Respiratory Rate 20 Blood Pressure [Left Arm] 174/105 Pulse Ox 93 Oxygen Delivery Method Room Air Height 6 ft 1 in Weight 190 lb - General General Appearance: POSITIVE: No Acute Distress, Cooperative - Head Head Exam: POSITIVE: Normal Inspection, Normocephalic, Atraumatic - Eye Eye Exam: POSITIVE: No Scleral Icterus - Respiratory Respiratory Exam: POSITIVE: Clear to Auscultation - Bilaterally, Breathing Non Labored - Cardiovascular Cardiovascular Exam: POSITIVE: RRR, No Murmur, No Clicks, No Gallops, No Rubs, No JVD - GI/Abdominal GI/Abdominal Exam: POSITIVE: Normal Bowel Sounds, Non Tender, Non Distended, Soft - Extremities Extremities Exam: POSITIVE: No Clubbing Present, No Edema Present, No Cyanosis Present - Neurological Neurological Exam: POSITIVE: Alert, Oriented x 3, Normal Gait, No Facial Droop, Speech Intact / Clear Additional Neurological Exam Details: The right upper extremity is perceptibly different in terms of its strength compared to the left, but that Is decreasing. I would say he is probably got about 80% of his strength back now. - Psychiatric Psychiatric Exam: POSITIVE: Normal Affect, Normal Mood Data Perinent Studies: Laboratory Results 08/28/16 08/29/16 Range/Units 12:37 05:23 WBC 6.19 (4.8-10.8) 10^3/uL RBC 5.56 (4.70-6.10) 10^6/uL Hgb 16.5 (14.0-18.0) g/dL Hct 49.0 (42.0-52.0) % MCV 88.1 (80-90) FL MCH 29.7 (27-31) PG MCHC 33.7 (33-37) g/dL RDW Std Deviation 44.7 (39-50) fL RDW Coeff of Ermelinda 14.0 (11.5-14.5) % Plt Count 277 (140-350) 10*3/uL MPV 9.3 (7.4-12.2) FL Immature Gran % (Auto) 0.2 (0-5) % Neut % (Auto) 63.9 (50-80) % Lymph % (Auto) 23.1 (10-50) % [place] % (Auto) 10.3 (5-15) % Eos % (Auto) 1.5 (0-8) % Baso % (Auto) 1.0 (0-1) % Immature Gran # (Auto) 0.01 10*3/UL Neut # (Auto) 3.96 10*3/UL Lymph # (Auto) 1.43 10*3/uL [place] # (Auto) 0.64 (0.3-0.8) 10*3/UL Eos # (Auto) 0.09 10*3/UL Baso # (Auto) 0.06 10*3/UL WBC Morphology Comment Normal morphology (NORM) Plt Morphology Comment Normal morphology (NORM) RBC Morph Comment Normal morphology (NORM) PT 10.2 (9.7-11.4) secs INR 0.99 (0.00-5.90) N/A Sodium 137 139 (135-145) meq/L Potassium 4.5 4.1 (3.8-5.2) meq/L Chloride 104 108 (98-112) meq/L Carbon Dioxide 24 23 (23-33) meq/L Anion Gap 9 8 (5-20) BUN 18 19 (7-22) mg/dL Creatinine 0.9 0.7 (0.70-1.50) mg/dL Estimated GFR > 60 > 60 (>60 ml/min/1.73m(2)) BUN/Creatinine Ratio 20.00 27.14 H (6-20) Glucose 488 H* 127 H (78-110) mg/dL Calculated Osmolality 307.0 H 291.0 (267-292) mOsm/kg Calcium 9.4 8.4 L (8.7-10.7) mg/dL Magnesium 2.0 (1.6-2.4) mg/dL Total Bilirubin 0.4 0.5 (0.3-1.2) mg/dL AST 35 37 (21-57) IU/L ALT 40 48 (21-72) IU/L Alkaline Phosphatase 65 49 (38-126) IU/L Total Protein 6.4 5.9 L (6.1-8.0) g/dL Albumin 3.7 3.3 L (3.5-4.8) g/dL Globulin 2.6 2.6 (2.50-4.10) g/dL Albumin/Globulin Ratio 1.40 1.20 L (1.3-2.0) mg/g Triglycerides 51 (44-200) mg/dL Cholesterol 122 (120-200) mg/dL LDL Cholesterol, Calc 75.800 mg/dL VLDL Cholesterol 10 (0-40) mg/dL HDL Cholesterol 36 L (40-150) mg/dL Cholesterol/HDL Ratio 3.38 (0-4.0) RATIO TSH 1.44 (0.2700-4.2000) uIU/mL Free T4 1.06 (0.93-1.71) ng/dL [facility] Patient Problems - Patient Problem List (1) Cerebrovascular accident Current Visit: Yes Status: Acute (2) HTN, goal below 130/80 Current Visit: Yes Status: Acute (3) Hypercholesteremia Current Visit: Yes Status: Acute (4) Tobacco abuse Current Visit: Yes Status: Acute (5) Dysphasia Current Visit: Yes Status: Acute Comment: I think likely related to an esophageal stricture.
[2016-08-30] MEDS ORDERED: Patch Removal PATCH TRANSDERM SCH (16:00)
--- NOTE | 2016-09-01 08:45 | DI ---
XR SHOULDER MIN 2VW,08/29/2016 6:23 PM: Clinical History: Right shoulder pain after a fall. Previous Exam: None at this facility. Findings: Multiple views of the right shoulder are obtained, and demonstrate anatomic alignment without fractur es. The surrounding soft tissues are unremarkable. The adjacent right lung and chest wall are unremar kable. Impression: No fracture.
--- NOTE | 2016-09-01 16:57 | OTI REPORT ---
Thank you for the referral of Bronson Wells. He was seen on 08/29/16 for an occupational therapy inpatient evaluation secondary to a CVA. SUBJECTIVE: The patient is a 51-year-old male who is being seen secondary to having right sided weakness. He had a left internal capsular stroke. 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 The patient does live with a significant other. He has a trailer and states he has to ascend and descend three stairs but once inside the trailer, it is one level. His bathroom set up includes a tub/shower combination. He sleeps in a standard bed. Prior to admission the patient was independent in his mobility without DME. The patient does have his girlfriend to help him with anything if needed. When asked about swallowing, the patient states occasionally it "feels like something is stuck". He says that he feels like something has been in his throat since his stroke and he really notices it after eating a meal; he states it makes him cough. The patient states his whole ride side is numb including his tongue, face, shoulder, elbow, and hand area. He has difficulty with coordination and feels like his hand coordination is very decreased. PAST MEDICAL HISTORY: Past medical history can be found in the patient's medical record. OBJECTIVE FINDINGS: Today we did a small swallow evaluation with liquids and food. The patient described the place where he feels the food is getting stuck as being two inches below the pharyngeal hyoid cartilage region; it may be more towards the esophageal region. The therapist assessed the patient's ability to eat food and drink liquid. We tried several compensatory strategies including chin tucks , lateral head movement to the left with a chin tuck and swallow, and lateral movement to the right with a chin tuck and swallow. He reports that the chin tuck with his head to the left improved his ability to get the food down. The patient still feels like things get stuck quite frequently. This was discussed with Dr. Thibodeaux today after the evaluation took place. We will set up a modified barium swallow study. Radiology will not be available until Thursday afternoon. The patient does have some trouble with medications; he feels like they get stuck as well. Range of motion: The patient had upper extremity range of motion that was within functional limits for the shoulder, elbow, and hand; however, he does have decreased coordination in the right side compared to the left. Strength: The patient has gross grasp on the right side of 55 pounds and 75 pounds on the left side. Strength was tested with the microfet and is as follows: shoulder flexion on the right was 14 pounds and shoulder flexion on the left was 26.5 pounds. Abduction on the right was 12.2 pounds and abduction on the left was 25.8 pounds. External rotation was 19.4 pounds on the right and 31.5 pounds on the left. Internal rotation was 16.2 pounds on the right and 31.6 pounds on the left. Lateral pinch strength on the right was 7.5 pounds and was 20.1 pounds on the left. Two finger pinch on the right was 15.2 pounds and on the left was 16.5 pounds. Nine hole peg test: Left was 31 seconds and right was 36 seconds. Adams Nicola: The patient has decreased protective sense in the volar and dorsum part of his right hand. ASSESSMENT: Problem List: Decreased coordination Decreased strength Patient will complete a modified barium swallow study on Thursday Decreased protective sensation on the right hand, right upper extremity, face , and tongue Patient would benefit from swallow strengthening exercises and compensatory strategies Short-Term Goals: To be met by discharge from inpatient: Patient will improve his baseline microfet scores by 50%. Patient will improve gross grasp by 10 pounds. Patient will improve by 5 seconds on the 9 hole peg test to improve coordination. Patient will learn three safety techniques to utilize during hot/cold tasks secondary to his decreased protective sense. Long-Term Goals: To be met following discharge from inpatient: Patient will be able to return home, demonstrating safety and independence with all higher level functional tasks and ADLs. TREATMENT PLAN: Patient will be seen B.I.D during the week and one time per day over the weekend as an inpatient to address the above goals and objectives. INITIAL TREATMENT: Treatment today consisted of the initial evaluation activities only. MTDD
--- NOTE | 2016-09-02 09:19 | OT PM DAY ---
Diagnosis : Cerebral Vascular Accident PM - Occupational Therapy S: The patient reports he feels like therapy would be very beneficial after he heard the measurements from this morning from his right upper extremity loss of strength. O: Today we worked on gross motor strengthening for the right upper extremity including wall pulleys with four kilograms for shoulder extension and rows and two kilograms for shoulder adduction and biceps curls x15 repetitions. He also did power web and digi-flex for hand strengthening. The patient then worked on coordination activities including nut and bolt activities for tip pinch, clothespins, and picking up small coins with one hand and getting them out of hand with other hand. A: The patient participated well in therapy today. P: Continue seeing patient BID during the week and one time per day over the weekend for upper extremity strengthening, ADLs, and overall functional mobility. TUAN
== END 2016-08-30 14:25 | disposition home or self-care (01) | DRG 65 ==
LOC: ER 12:15 → MED/SURG 15:13
PROVIDERS: ADMIT Family Medicine; ATTEND Family Medicine
DX: I63.9 Cerebral infarction, unspecified (principal); G81.91 Hemiplegia, unspecified affecting right dominant side; E10.9 Type 1 diabetes mellitus without complications; Z79.4 Long term (current) use of insulin; Z72.0 Tobacco use; I10 Essential (primary) hypertension; R47.02 Dysphasia
CPT/HCPCS: 36415; 70030; 70544; 70547; 70551; 73030; 80053; 80061; 82948; 83735; 84311; 84439; 84443; 85025; 85610; 93005; 93010; 93306; 93880; 94761; 96361; 96374; 96375; 97110; 97162; 97167; 97530; 99285; J1650; J2405; J7030

== ENCOUNTER → 2016-10-17 | Outpatient (CLI) | payer BC ==
--- NOTE | 2016-10-17 09:50 | DI ---
XR ESOPHAGRAM,10/17/2016 9:19 AM: Clinical History: Dysphagia. Previous Exam: None at this facility. Findings: Multiple views from an esophagram are obtained, and demonstrate normal course and caliber of the esop hagus. Patient was given a 13 mm barium pill which was temporarily suspended in the upper esophagus just abo ve the aortic knob. The patient stated that this replicated his symptoms with food being stuck. The pill passed promptly after the patient was given a swallow of thin barium. The esophagus demonstrated a normal course and caliber with a normal gastroesophageal junction. The stomach was normal except for a large paraesophageal hiatal hernia with a big portion of the maddy miya cardia within the chest cavity. There was some reflux seen during the exam to the level of the midesophagus. Impression: 1. Suspicion of a 13 mm area pellet in the proximal third of the esophagus which duplicated patient's symptoms however, there is no stricture identified in this area. 2. Large paraesophageal hiatal hernia. Recommend surgical consultation for further evaluation.
== END ==
LOC: RAD 09:18
PROVIDERS: ATTEND Surgery
DX: R47.02 Dysphasia (principal)
CPT/HCPCS: 74220

== ENCOUNTER 2017-01-20 02:08 | Inpatient (IN) | payer BC ==
[2017-01-20] MEDS ORDERED: INSULIN REGULAR, HUMAN 100 UNIT/1 ML - 3 ML IV ONE (02:26)
[2017-01-20] MEDS ORDERED: ONDANSETRON 4 MG/2 ML VIAL IVP ONE (02:26)
--- NOTE | 2017-01-20 02:32 | PDOC ---
Gen Adult / Medical Screen HPI - General Chief Complaint: General Medical Stated Complaint: HIGH BLOOD GLUCOSE Date Seen by Provider: 01/20/17 Time Seen by Provider: 02:28 Source: POSITIVE: Patient Exam Limitations: POSITIVE: No limitations Nurse's Notes Reviewed & Considered: Yes - Indicators Temperature Between 95 and 101 Degrees: Yes Respirations Between 12 and 20: Yes Blood Pressure Between 100-165 (sys) and 60-100 (woodard): Yes Pulse Range Between 60-105 (100 for age > 60 years): Yes Severe Pain (Greater than 5/10 Reported): No Chest or Abdominal Pain: No Inability to Walk: No Pt Reports Active High Risk Cond. (TB/Hepatitis/HIV/Chemo): No Abnormal Mental Status: No - History of Present Illness Initial Comments: This pleasant 51-year-old male who is a type I diabetic comes in today with chief complaint of high blood sugars. Patient has been having increased blood sugars now with vomiting. He states he vomits when he tries to drink water. He has had increased thirst. He is presently on a insulin pump receiving 1.5 units per hour of Humalog. He denies any headache, chest pain or shortness of breath, no diarrhea, no fever chills or sweats. Timing: REPORTS: Unknown Duration: Unknown Similar Symptoms Previously: Yes Recent Care Received: REPORTS: Denies Any Prior Injuries Related to Current Complaint?: No - Patient Home Medications Home Medications: Home Medications Urine Acetone Test,Strips [Ketostix Reagent] 1 each QAM #1 box 08/21/15 Blood Sugar Diagnostic [Contour Next] 1 each Q2-3H #300 strip 09/26/15 Blood Sugar Diagnostic [Contour Next] 8 - 10 each QD #300 strip 09/26/15 Lisinopril 1 tab PO BID #60 tab 07/17/16 Gabapentin 1 tab PO QID #120 tab 08/21/16 Amitriptyline HCl 1 tab PO QHS #30 tab 09/08/16 Amlodipine Besylate 5 mg PO BID #60 tab 09/08/16 Clopidogrel Bisulfate [Plavix] 75 mg PO DAILY #90 tab 10/03/16 Nicotine [Nicotine Patch] 21 mg TD QD #30 patch 10/09/16 Lansoprazole [Prevacid] 30 mg PO DAILY #90 cap 10/30/16 Atorvastatin Calcium [Lipitor] 80 mg PO QPM #90 tablet 11/07/16 Tadalafil [Cialis] 1 tab PO DAILY #30 tab 12/08/16 Insulin, Lispro [Humalog] 1 - 80 unit SUBCUT QD #2 vial 12/18/16 - Patient Allergies Allergies/Adverse Reactions: Allergies Allergy/AdvReac Type Severity Reaction Status Date / Time Penicillins Allergy Anaphylaxis Verified 01/20/17 02:23 Past Medical History - heen HEENT History: Denies History Cardiovascular History: Denies History Respiratory History: Denies History Additional Respiratory History: SMOKER Gastrointestinal History: Denies History Genitourinary History: Denies History Endocrine History: Type 1 Diabetes Musculoskeletal History: Denies History Neurological History: Denies History Blood Disorders: Denies History Psychiatric History: Denies History Cancer History: Denies History History of MDRO: No Alcohol Use: None Substance Use Type: None Previous Surgical History: Yes Type / Date of Surgery: APPE, LEFT HAND SURGERY Significant Family History: No pertinent family hx ROS - Limitations ROS Limitations: No Limitations Constitution: REPORTS: Denies Symptoms Cardiovascular: REPORTS: Denies Cardiac Symptoms Respiratory: REPORTS: Denies Resp Symptoms Neurological: REPORTS: Denies Neuro Symptoms Gastrointestinal: REPORTS: Nausea, Vomitting Endocrine: REPORTS: Elevated Glucose, Polydypsia Musculoskeletal: REPORTS: Denies MS Symptoms Genitourinary: REPORTS: Denies Symptoms Eyes: REPORTS: Denies Symptoms ENT: REPORTS: Denies Symptoms Skin: REPORTS: Denies Skin Symptoms Lympathic: REPORTS: Denies Lympathic Symptoms Immunologic: POSITIVE: Denies Symptoms Psychiatric: POSITIVE: Denies Psych Symptoms Gen Adult/Medical Screen Exam - General Appearance General Appearance: POSITIVE: Alert, Cooperative, No Acute Distress, No Evidence of Trauma - HEENT HEENT: POSITIVE: Head Inspection Nml, Eyes Inspection Nml, Ears Inspection Nml, Pharynx Inspect. Nml, PERRL, EOMI, Dry Mucous Membranes - Pupils Pupil Size: 4 mm: Bilateral - Neck Neck: POSITIVE: Normal Inspection, Thyroid Normal - Respiratory Respiratory: POSITIVE: No Respiratory Distress, Breath Sounds Normal, Chest Non- Tender - Cardiovascular Cardiovascular: POSITIVE: Regular Rate & Rhythm, No Murmur, No Gallop, PMI Normal - Abdomen Abdomen: Soft: (All Quadrants), Normal Bowel Sounds: (All Quadrants), Denies Tenderness: (All Quadrants), No Splenomegaly: (All Quadrants), No Hepatomegaly: (All Quadrants), No Guarding: (All Quadrants), No Rebound: (All Quadrants), No Palpable Pulse: (All Quadrants), No Palpabale Mass: (All Quadrants), No Distention: (All Quadrants), No Rigidity: (All Quadrants) - Back Back: POSITIVE: Normal Inspection - Neurological / Psychological Mental Status: POSITIVE: Mood Normal, Affect Normal Orientation: POSITIVE: Oriented x 3 - Skin Skin: POSITIVE: Normal Color, Warm, Dry, No Rash - Extremities Extremity: Non-Tender: (All Extremities), Normal ROM: (All Extremities), Normal Inspection: (All Extremities) Procedures - Laceration/Wound Repair Did patient have a laceration repair: No Gen Adlt/Medical Scrn Progress - Results Reviewed by me Xrays/CTs/US Reviewed by me: Yes Discussed with Radiologist: Yes Lab Results Reviewed: Yes Lab Results:: Laboratory Results 01/20/17 01/20/17 Range/Units 02:05 02:35 WBC 11.70 H (4.8-10.8) 10^3/uL RBC 5.28 (4.70-6.10) 10^6/uL Hgb 16.1 (14.0-18.0) g/dL Hct 47.1 (42.0-52.0) % MCV 89.2 (80-90) FL MCH 30.5 (27-31) PG MCHC 34.2 (33-37) g/dL RDW Std Deviation 44.8 (39-50) fL RDW Coeff of Ermelinda 13.9 (11.5-14.5) % Plt Count 245 (140-350) 10*3/uL MPV 10.4 (7.4-12.2) FL Immature Gran % (Auto) 0.3 (0-5) % Neut % (Auto) 87.4 H (50-80) % Lymph % (Auto) 7.1 L (10-50) % Hawkins % (Auto) 4.3 L (5-15) % Eos % (Auto) 0.2 (0-8) % Baso % (Auto) 0.7 (0-1) % Immature Gran # (Auto) 0.04 10*3/UL Neut # (Auto) 10.23 10*3/UL Lymph # (Auto) 0.83 10*3/uL Hawkins # (Auto) 0.50 (0.3-0.8) 10*3/UL Eos # (Auto) 0.02 10*3/UL Baso # (Auto) 0.08 10*3/UL WBC Morphology Comment Normal morphology (NORM) Plt Morphology Comment Normal morphology (NORM) RBC Morph Comment Normal morphology (NORM) Sodium 135 (135-145) meq/L Potassium 5.0 (3.8-5.2) meq/L Chloride 101 (98-112) meq/L Carbon Dioxide 16 L (23-33) meq/L Anion Gap 18 (5-20) BUN 22 (7-22) mg/dL Creatinine 0.9 (0.70-1.50) mg/dL Estimated GFR > 60 (>60 ml/min/1.73m(2)) BUN/Creatinine Ratio 24.44 H (6-20) Glucose 535 H* (78-110) mg/dL Mean Blood Glucose 202.378 mg/dL Hemoglobin A1c 8.66 H (4.2-6.0) % Calculated Osmolality 306.0 H (267-292) mOsm/kg Lactic Acid 2.8 H (0.70-2.10) MMOL/L Calcium 8.9 (8.7-10.7) mg/dL Magnesium 1.8 (1.6-2.4) mg/dL Total Bilirubin 0.9 (0.3-1.2) mg/dL AST 31 (21-57) IU/L ALT 59 (21-72) IU/L Alkaline Phosphatase 61 (38-126) IU/L Total Protein 5.8 L (6.1-8.0) g/dL Albumin 3.6 (3.5-4.8) g/dL Globulin 2.2 L (2.50-4.10) g/dL Albumin/Globulin Ratio 1.60 (1.3-2.0) mg/g Lipase 33 (23-300) IU/L TSH 1.22 (0.2700-4.2000) uIU/mL Acetone Level Pending - Patient's Progress Pain Medication Addressed: POSITIVE: Not Applicable Re-Examine Time: 04:03 Status: POSITIVE: Improved MDM / ED Course: Patient was evaluated, an IV started, blood drawn and sent to the lab for studies, radiographic examination was obtained. Findings: CBC shows white count elevated over 11. Comprehensive metabolic panel shows glucose of 535. Lactic acid is 2.8. Acetone levels are pending. Chest x-rays and normal chest radiograph. Hemoglobin A1c is over 8. ER course: Patient received 2 L of normal saline and 10 units of regular insulin. His glucose dropped from 535-440. Assessment: Diabetic ketoacidosis. Plan: Admission, fluid resuscitation, insulin drip. - Consult Consult (If Yes, Name of Consulting MD & Time Called): Yes (Dr. Thibodeaux [id number]) Consulting MD will see pt:: POSITIVE: [facility] [place] Admit Counseled: POSITIVE: Patient, RE: Lab Results, RE: Radiology Results, RE: DX Patient Care Time - Estimated PCT Patient Care Time (In Minutes): 45 Vital Signs - Recent Vital Signs Vital Signs: Vital Signs (Last 8 hours) Temp Pulse Resp BP Pulse Ox 01/20/17 02:08 98.0 F 87 18 94/64 93 - VS Reviewed Vital Signs Reviewed: Yes Discharge Clinical Impression: Diabetic ketoacidosis Discharge Disposition: Admit to Inpatient Condition: Stable Date Decision to Admit to Inpatient: 01/20/17 Time Decision to Admit to Inpatient: 04:07
[2017-01-20 02:41] LABS: BASOPHILS # (AUTO) 0.08 10*3/UL; BASOPHILS % (AUTO) 0.7 % (0-1); EOSINOPHILS # (AUTO) 0.02 10*3/UL; EOSINOPHILS % (AUTO) 0.2 % (0-8); HEMATOCRIT 47.1 % (42.0-52.0); HEMOGLOBIN 16.1 g/dL (14.0-18.0); LYMPHOCYTES # (AUTO) 0.83 10*3/uL; MEAN CORPUSCULAR HEMOGLOBIN 30.5 PG (27-31); MEAN CORPUSCULAR HGB CONC 34.2 g/dL (33-37); MEAN CORPUSCULAR VOLUME 89.2 FL (80-90); MEAN PLATELET VOLUME 10.4 FL (7.4-12.2); MONOCYTES % (AUTO) 4.3 % (5-15); NEUTROPHILS # (AUTO) 10.23 10*3/UL; NEUTROPHILS % (AUTO) 87.4 % (50-80); PLATELET MORPHOLOGY COMMENT NORMAL MORPHOLOGY (NORM); RBC MORPHOLOGY COMMENT NORMAL MORPHOLOGY (NORM); RED BLOOD COUNT 5.28 10^6/uL (4.70-6.10); WBC MORPHOLOGY COMMENT NORMAL MORPHOLOGY (NORM)
[2017-01-20 02:49] LABS: ACETONE, SERUM SMALL (NEGATIVE)
[2017-01-20] MEDS: Sodium Chloride 0.9% 2,000 ML PRIMARY IV ONE ×3 (02:50→04:49)
[2017-01-20 02:52] LABS: HEMOGLOBIN A1C 8.66 % (4.2-6.0)
[2017-01-20 02:54] LABS: BLOOD UREA NITROGEN 22 mg/dL (7-22); BUN/CREATININE RATIO 24.44 (6-20); CALCIUM 8.9 mg/dL (8.7-10.7); EST GLOMERULAR FILTRATION > 60 (>60 ml/min/1.73m(2)); LIPASE 33 IU/L (23-300); MAGNESIUM 1.8 mg/dL (1.6-2.4); SERUM ALBUMIN 3.6 g/dL (3.5-4.8)
--- NOTE | 2017-01-20 03:41 | DI ---
PRELIMINARY REPORT ONLY HISTORY: Elevated glucose. FINDINGS: Large hiatal hernia, otherwise normal chest X-ray. IMPRESSION: 1. Large hiatal hernia, otherwise normal chest X-ray.
[2017-01-20] MEDS ORDERED: Insulin Regular Inj 100 UNIT in Sodium Chloride 0.9% 99 ML IV SCH (04:15)
[2017-01-20] MEDS ORDERED: Sodium Chloride 0.9% 100 ML IV ONE (04:38)
[2017-01-20 04:50] LABS: BILIRUBIN,URINE NEGATIVE (NEG); CLARITY,URINE CLEAR (CLEAR); COLOR,URINE YELLOW; GLUCOSE, URINE (UA) 500 mg/dL (NEG); NITRATE,URINE NEGATIVE (NEG); OCCULT BLOOD,URINE NEGATIVE (NEG); PROTEIN,URINE NEGATIVE (NEG); UROBILINOGEN,URINE 0.2 EU/dL (0.2)
[2017-01-20 04:52] LABS: URINE SAMPLE TYPE CLEAN CATCH URINE
[2017-01-20] MEDS ORDERED: D5-1/2NS 1,000 ML PRIMARY IV ONE (05:03)
[2017-01-20] MEDS ORDERED: Sodium Chloride 0.9% 1,000 ML PRIMARY IV SCH (06:14)
[2017-01-20] MEDS ORDERED: LIDOCAINE W/ SODIUM BICARB 0.5 ML SYR SUBD PRN (06:14)
[2017-01-20] MEDS ORDERED: NORMAL SALINE 10 ML SYRINGE FLUSH IVP PRN (06:14)
[2017-01-20] MEDS ORDERED: ONDANSETRON 4 MG/2 ML VIAL IVP PRN (06:14)
[2017-01-20] MEDS ORDERED: ACETAMINOPHEN 325 MG TABLET PO PRN (06:14)
[2017-01-20 06:30] LABS: MAGNESIUM 1.9 mg/dL (1.6-2.4)
[2017-01-20 06:57] LABS: BLOOD UREA NITROGEN 21 mg/dL (7-22); BUN/CREATININE RATIO 26.25 (6-20); CALCIUM 8.2 mg/dL (8.7-10.7); EST GLOMERULAR FILTRATION > 60 (>60 ml/min/1.73m(2)); PHOSPHORUS 2.8 mg/dl (2.4-4.3)
[2017-01-20] MEDS: Insulin Regular Inj 100 UNIT in Sodium Chloride 0.9% 99 ML IV SCH ×2 (08:00→19:09)
[2017-01-20] MEDS: D5-1/2NS 1,000 ML PRIMARY IV SCH ×3 (08:24→23:38)
[2017-01-20] MEDS ORDERED: Pantoprazole Inj 40 MG in Normal Saline Flush 10 ML IVP SCH (09:00)
[2017-01-20] MEDS ORDERED: Non-Formulary Drug (Gabapentin [Gabapentin] 1 TAB) PO SCH (09:00)
[2017-01-20] MEDS: NICOTINE 21 MG /DAY PATCH TRANSDERM SCH (09:02)
[2017-01-20] MEDS: AmLODIPine Tab 5 MG TABLET PO SCH ×2 (09:03→21:37)
[2017-01-20] MEDS: CLOPIDOGREL 75 MG TABLET PO SCH (09:03)
[2017-01-20] MEDS: Patch Removal PATCH TRANSDERM SCH (09:04)
[2017-01-20 10:33] LABS: MAGNESIUM 1.9 mg/dL (1.6-2.4); PHOSPHORUS 2.6 mg/dl (2.4-4.3)
[2017-01-20 10:34] LABS: BLOOD UREA NITROGEN 22 mg/dL (7-22); BUN/CREATININE RATIO 31.42 (6-20); EST GLOMERULAR FILTRATION > 60 (>60 ml/min/1.73m(2))
[2017-01-20 14:32] LABS: BLOOD UREA NITROGEN 22 mg/dL (7-22); BUN/CREATININE RATIO 31.42 (6-20); CALCIUM 7.8 mg/dL (8.7-10.7); EST GLOMERULAR FILTRATION > 60 (>60 ml/min/1.73m(2))
[2017-01-20 14:41] LABS: MAGNESIUM 1.7 mg/dL (1.6-2.4); PHOSPHORUS 3.4 mg/dl (2.4-4.3)
--- NOTE | 2017-01-20 14:48 | PDOC ---
History and Physical - History of Present Illness Date and Time of Service: 11/20/2016, 1445 Chief Complaint: Nausea and vomiting and ketones History of Present Illness: Patient was seen and evaluated earlier today. This is a 51-year-old male with history of stroke, diabetes medicine type I, hypertension, who presents with complaints of nausea and vomiting over the past 2 days and increased ketones. He knew he was getting into some trouble light last night and came in for evaluation as his symptoms just did not get any better. He tried to adjust his insulin. This did not help though. It usually does in the past and is not had any problems with DKA in some time. He notes that his nausea and vomiting symptoms have been worse with eating in particular and he's been trying to get a large hiatal hernia addressed and was actually supposed to have a scope done today with Dr. Villa in [place]. Unfortunately, he continued to decline and felt that his symptoms were not getting better and noticed that there were ketones in the urine. He came in for evaluation. He denies any fever, cough, or urinary symptoms. He states he's been frustrated by the whole process of trying to get the hiatal hernia repaired just because it's been difficult for him to get transportation to [place]. There were no other exacerbating factors and with the DKA insulin drip, the patient seems to be feeling a little better with lower blood sugars, but states overall that it's been a slow process getting better from this episode of DKA. He did have a prior episode of DKA a few years ago. Past Medical History Medical History: Diabetes mellitus, on pump therapy. Hypertension. Tobacco abuse. Hypercholesterolemia. Large hiatal hernia. History of stroke with right-sided residual weakness Surgical History: Appendectomy. Left carpal tunnel repair Pertinent Family History: Father had a stroke in his 80s. 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 He is in a committed relationship that is considered a domestic partnership with his girlfriend. He tells me that she would be the person he would like to make medical decisions for him if he could not for himself. The patient does not have any children of his own. Tobacco Use: Current Every Day Smoker Do you dip or chew tobacco: No Substance Use Type: None Alcohol Use: None Medication / Allergies Home Medications: Home Medications Medication Instructions Recorded Confirmed Type Urine Acetone Test,Strips 1 each QAM #1 box 08/21/15 01/20/17 Clinic [Ketostix Reagent] Blood Sugar Diagnostic [Contour 1 each Q2-3H #300 strip 09/26/15 01/20/17 Clinic Next] Blood Sugar Diagnostic [Contour 8 - 10 each QD #300 strip 09/26/15 01/20/17 Clinic Next] Lisinopril 1 tab PO BID #60 tab 07/17/16 01/20/17 Clinic Gabapentin 1 tab PO QID #120 tab 08/21/16 01/20/17 Clinic Amitriptyline HCl 1 tab PO QHS #30 tab 09/08/16 01/20/17 [facility] Amlodipine Besylate 5 mg PO BID #60 tab 09/08/16 01/20/17 [facility] Clopidogrel Bisulfate [Plavix] 75 mg PO DAILY #90 tab 10/03/16 01/20/17 Clinic Nicotine [Nicotine Patch] 21 mg TD QD #30 patch 10/09/16 01/20/17 [facility] Lansoprazole [Prevacid] 30 mg PO DAILY #90 cap 10/30/16 01/20/17 Clinic Atorvastatin Calcium [Lipitor] 80 mg PO QPM #90 tablet 11/07/16 01/20/17 [facility] Tadalafil [Cialis] 1 tab PO DAILY #30 tab 12/08/16 01/20/17 [facility] Insulin, Lispro [Humalog] 1 - 80 unit SUBCUT QD #2 vial 12/18/16 01/20/17 Clinic Allergies/Adverse Reactions: Allergies Allergy/AdvReac Type Severity Reaction Status Date / Time Penicillins Allergy Anaphylaxis Verified 01/20/17 06:31 Review of Systems - Review of Systems All Systems: Reviewed & No Additional Complaints Except as Stated (I did a 12 point review systems and it was negative except for that discussed in the history of present illness and that noted below.) - Respiratory Respiratory: DENIES: Negative System Review, Cough, Sputum, Dyspnea At Rest, Dyspnea with Exertion, Pleuritic Pain, Hemoptysis, Wheezing, Other, See HPI - Cardiovascular Cardiovascular: DENIES: Negative System Review, Chest Pain, Edema, Syncope, Palpitations, Orthopnea, Paroxysmal Nocturnal Dyspnea, Other, See HPI - Gastrointestinal Gastrointestinal / Abdominal: REPORTS: Nausea, Vomiting, Heartburn, See HPI - Genitourinary Genitourinary: DENIES: Negative System Review, Pain, Burning, Hematuria, Incontinence, Urgency, Hesitant Stream, Decreased Stream, Nocutria, Discharge, Sexual Dyfunction, Other, See HPI - Musculoskeletal Musculoskeletal: DENIES: Negative System Review, Back Pain, Neck Pain, Swelling , Calf Pain, Muscle Pain, Cramping, Joint Pain - Hands, Joint Pain - Elbows, Joint Pain - Shoulders, Joint Pain - Hips, Joint Pain - Knees, Joint Pain - Feet , AM Stiffness, Other, See HPI - Neurological Neurologic: REPORTS: Weakness (An intrinsic and extrinsic muscle function in the right hand. He states he's gained his gross motor strength back, but still cannot play guitar with fine motor strength.) Exam - Vitals Vital Signs: Vital Signs Vital Signs - Last Taken Temperature 98.5 F 01/20/17 10:00 Pulse Rate 70 01/20/17 14:00 Respiratory Rate 16 01/20/17 14:00 Blood Pressure 94/84 01/20/17 14:00 Pulse Ox 95 01/20/17 14:00 - General General Appearance: POSITIVE: No Acute Distress, Cooperative - Head Head Exam: POSITIVE: Normal Inspection, Normocephalic, Atraumatic - Eye Eye Exam: POSITIVE: No Scleral Icterus - ENT ENT Exam: POSITIVE: Mucous Membranes Dry - Neck Neck Exam: POSITIVE: Normal Inspection, No Tenderness, No Thyromegaly - Respiratory Respiratory Exam: POSITIVE: Clear to Auscultation - Bilaterally, Breathing Non Labored, Normal to Percussion and Palpation - Cardiovascular Cardiovascular Exam: POSITIVE: RRR, No Murmur, No Clicks, No Gallops, No Rubs, No JVD - GI/Abdominal GI/Abdominal Exam: POSITIVE: Normal Bowel Sounds, Non Tender, Non Distended, Soft - Rectal Rectal Exam: POSITIVE: Deferred - External Exam: POSITIVE: Deferred Exam: POSITIVE: Deferred - Extremities Extremities Exam: POSITIVE: No Clubbing Present, No Edema Present, No Cyanosis Present - Back Back Exam: POSITIVE: No CVA Tenderness - Neurological Neurological Exam: POSITIVE: Alert, Oriented x 3, No Facial Droop, Speech Intact / Clear, Moves All Extremities Equally - Psychiatric Psychiatric Exam: POSITIVE: Normal Affect, Normal Mood Results - Labs CBC and BMP: 01/20/17 02:05 01/20/17 14:14 Labs - Last 24 Hours: Laboratory Results 01/20/17 01/20/17 01/20/17 Range/Units 04:34 06:43 10:15 Sodium 137 137 (135-145) meq/L Potassium 3.7 L D 3.8 (3.8-5.2) meq/L Chloride 110 111 (98-112) meq/L Carbon Dioxide 16 L 20 L (23-33) meq/L Anion Gap 11 6 (5-20) BUN 21 22 (7-22) mg/dL Creatinine 0.8 0.7 (0.70-1.50) mg/dL Estimated GFR > 60 > 60 (>60 ml/min/1.73m(2)) BUN/Creatinine Ratio 26.25 H 31.42 H (6-20) Glucose 275 H 170 H (78-110) mg/dL Calculated Osmolality 296.0 H 290.0 (267-292) mOsm/kg Lactic Acid (0.70-2.10) MMOL/L Calcium 8.2 L 8.0 L (8.7-10.7) mg/dL Phosphorus 2.8 2.6 (2.4-4.3) mg/dl Magnesium 1.9 1.9 (1.6-2.4) mg/dL Ur Collection Type Clean catch urine Urine Color Yellow Urine Clarity Clear (CLEAR) Urine pH 5.0 (5.0-8.5) Ur Specific [place] 1.010 (1.005-1.030) Urine Protein Negative (NEG) mg/dl Urine Glucose (UA) 500 (NEG) mg/dL Urine Ketones >=160 (NEG) Urine Occult Blood Negative (NEG) Urine Nitrate Negative (NEG) Urine Bilirubin Negative (NEG) Urine Urobilinogen 0.2 (0.2) EU/dL Ur Leukocyte Esterase Negative (NEG) Ur Culture Indicated? Culture not set Acetone Level (NEGATIVE) 01/20/17 Range/Units 14:14 Sodium 137 (135-145) meq/L Potassium 3.9 (3.8-5.2) meq/L Chloride 110 (98-112) meq/L Carbon Dioxide 21 L (23-33) meq/L Anion Gap 6 (5-20) BUN 22 (7-22) mg/dL Creatinine 0.7 (0.70-1.50) mg/dL Estimated GFR > 60 (>60 ml/min/1.73m(2)) BUN/Creatinine Ratio 31.42 H (6-20) Glucose 81 (78-110) mg/dL Calculated Osmolality 285.0 (267-292) mOsm/kg Lactic Acid 0.9 (0.70-2.10) MMOL/L Calcium 7.8 L (8.7-10.7) mg/dL Phosphorus 3.4 (2.4-4.3) mg/dl Magnesium 1.7 (1.6-2.4) mg/dL Ur Collection Type Urine Color Urine Clarity (CLEAR) Urine pH (5.0-8.5) Ur Specific [place] (1.005-1.030) Urine Protein (NEG) mg/dl Urine Glucose (UA) (NEG) mg/dL Urine Ketones (NEG) Urine Occult Blood (NEG) Urine Nitrate (NEG) Urine Bilirubin (NEG) Urine Urobilinogen (0.2) EU/dL Ur Leukocyte Esterase (NEG) Ur Culture Indicated? Acetone Level Small (NEGATIVE) - Imaging Status: Image Reviewed by Me (Chest x-ray, on my view, shows hiatal hernia. Seems consistent with COPD with hyperexpanded lung sheikh.) Assessment and Plan - Patient Problems (1) Diabetic ketoacidosis Current Visit: Yes Status: Acute Code(s): E13.10 Qualifiers: Diabetes mellitus type: type 1 Diabetes mellitus complication detail: without coma Qualified Description: Diabetic ketoacidosis without coma associated with type 1 diabetes mellitus Qualifier Code(s): (E10.10) Type 1 diabetes mellitus with ketoacidosis without coma (2) HTN, goal below 130/80 Current Visit: Yes Status: Chronic (3) Insulin dependent diabetes mellitus Current Visit: Yes Status: Acute (4) Tobacco abuse Current Visit: Yes Status: Chronic (5) History of cerebrovascular accident Current Visit: Yes Status: Chronic - Assessment / Plan Additional Assessment/Plan Details: Admit the patient. Insulin drip and switch fluids to D5 half-normal saline when blood sugars 250 or below. Electrolyte replacement as necessary. Allow the patient eat a by mouth diet Adjust drip as necessary to avoid hypoglycemia felt possible. Check frequent metabolic panels and acetone levels until resolved in the bloodstream. Resume pump therapy when possible. I spoke with the patient's surgery office regarding his EGD and scope to evaluate for the hiatal hernia, and let them know the patient was inpatient. We will try to reschedule the scope procedure for the patient prior to leaving the hospital, if possible, and have him hold his Plavix until then. We'll review medications and if not on statin, may evaluate cholesterol status. I encouraged continued smoking cessation efforts. He is using the nicotine patch, and has cut back to a quarter pack, and I think he's well on his way to smoking cessation if we continue to encourage this. I discussed the above plan with the patient and he agreed.
[2017-01-20] MEDS ORDERED: Magnesium Sulfate 2gm (Premix) 2 GM in Premix 1 BAG IV ONE (15:00)
[2017-01-20] MEDS ORDERED: CALCIUM CARBONATE 500 MG (TUMS) CHEWABLE TABLET PO PRN (15:11)
[2017-01-20 18:43] LABS: BLOOD UREA NITROGEN 24 mg/dL (7-22); BUN/CREATININE RATIO 34.28 (6-20); CALCIUM 7.6 mg/dL (8.7-10.7); EST GLOMERULAR FILTRATION > 60 (>60 ml/min/1.73m(2))
[2017-01-20 19:12] LABS: PHOSPHORUS 3.1 mg/dl (2.4-4.3)
[2017-01-20] MEDS ORDERED: POTASSIUM CHLORIDE 20 MEQ TAB PO ONE (19:22)
[2017-01-20] MEDS ORDERED: AMITRIPTYLINE 25 MG TABLET PO SCH (21:00)
[2017-01-20] MEDS ORDERED: ATORVASTATIN 40 MG TABLET PO SCH (21:00)
[2017-01-20] MEDS: Pantoprazole Inj 40 MG in Normal Saline Flush 10 ML IVP SCH (21:38)
[2017-01-21 00:08] LABS: BLOOD UREA NITROGEN 19 mg/dL (7-22); BUN/CREATININE RATIO 27.14 (6-20); CALCIUM 7.8 mg/dL (8.7-10.7); EST GLOMERULAR FILTRATION > 60 (>60 ml/min/1.73m(2))
[2017-01-21] MEDS ORDERED: Sodium Chloride 0.9% 1,000 ML IV ONE (00:39)
[2017-01-21] MEDS ORDERED: POTASSIUM CHLORIDE 20 MEQ TAB PO ONE (00:40)
[2017-01-21] MEDS ORDERED: Sodium Chloride 0.9% 1,000 ML ONE (00:54)
[2017-01-21 05:25] LABS: VENOUS PH 7.37 (7.32-7.42)
[2017-01-21 05:32] LABS: BLOOD UREA NITROGEN 15 mg/dL (7-22); CALCIUM 7.7 mg/dL (8.7-10.7); EST GLOMERULAR FILTRATION > 60 (>60 ml/min/1.73m(2))
[2017-01-21 05:33] LABS: HEMOGLOBIN A1C 8.65 % (4.2-6.0)
[2017-01-21 05:57] LABS: ACETONE, SERUM NEGATIVE (NEGATIVE)
[2017-01-21] MEDS: D5-1/2NS 1,000 ML PRIMARY IV SCH (08:13)
[2017-01-21] MEDS: NICOTINE 21 MG /DAY PATCH TRANSDERM SCH (08:22)
[2017-01-21] MEDS: AmLODIPine Tab 5 MG TABLET PO SCH (08:23)
[2017-01-21] MEDS: Pantoprazole Inj 40 MG in Normal Saline Flush 10 ML IVP SCH (08:23)
[2017-01-21] MEDS: Patch Removal PATCH TRANSDERM SCH (08:23)
[2017-01-21] MEDS: CLOPIDOGREL 75 MG TABLET PO SCH (08:23)
[2017-01-21] MEDS ORDERED: Insulin Glargine SoloStar Inj 100 UNIT/ML INSULN.PEN SUBCUT ONE ×2 (13:04→19:10)
[2017-01-21] MEDS ORDERED: NORMAL SALINE 10 ML SYRINGE FLUSH IVP PRN (14:47)
[2017-01-21] MEDS ORDERED: CALCIUM CARBONATE 500 MG (TUMS) CHEWABLE TABLET PO PRN (14:47)
[2017-01-21] MEDS ORDERED: ONDANSETRON 4 MG/2 ML VIAL IVP PRN (14:47)
[2017-01-21] MEDS ORDERED: ACETAMINOPHEN 325 MG TABLET PO PRN (14:47)
[2017-01-21] MEDS ORDERED: DEXTROSE 50%-WATER SYRINGE 50 ML SYRINGE IVP PRN (14:47)
[2017-01-21] MEDS ORDERED: LIDOCAINE W/ SODIUM BICARB 0.5 ML SYR SUBD PRN (14:47)
[2017-01-21] MEDS ORDERED: Insulin Sliding Scale Protocol SUBCUT PRN (14:47)
[2017-01-21] MEDS ORDERED: Glucagon Inj Vial 1 MG/ML VIAL IM PRN (14:47)
[2017-01-21] MEDS ORDERED: DEXTROSE 31 GM GEL PO PRN (14:47)
[2017-01-21] MEDS: Insulin Lispro Flexpen 300 UNIT/3 ML INSULN.PEN SUBCUT SCH ×2 (16:31→19:25)
--- NOTE | 2017-01-21 19:15 | DCSUMMARY ---
Hospitalization Summary Admit Date: 01/20/17 Discharge Date: 01/21/17 Primary Diagnosis:: diabetic ketoacidosis, resolved Secondary Diagnosis:: Poorly controlled type I diabetes mellitus Hiatal hernia with severe acid reflux Hospital Course: This very pleasant 51-year-old male with diabetes as well as type I, history of a stroke, hypertension, hypercholesterolemia, who comes in complaining of nausea and vomiting and was found to be in diabetic ketoacidosis. He was admitted, placed on an insulin drip, and his blood sugars corrected over a 24- hour period or so. We were able to transfer him out of the ICU to the medical floor today, and convert him to Lantus and Humalog as his regimen. He has been on insulin pump, but cannot get the infusion set ups because of cost. He is willing to go back to either the pens of Humalog or Lantus or even use vials if necessary. We try to coordinate a follow-up appointment [facility]. I did call them to let the office know that the patient was inpatient during his initial consultation appointment. For now, I've instructed the patient to remain on Plavix and all his procedures are arranged with Dr. Veras and [facility]. In terms of his other medical issues, they remain stable through the hospital stay. In terms of his set of her insulin, we have him going home on 35 units of Lantus every morning, and 8 units of Humalog with meals plus a correction dose 2 units of additional Humalog for every 50 sugar above 150. The patient expressed understanding of this. He does not have any chest pain, shortness breath, nausea or vomiting. His heartburn is intermittent and fairly consistent. I told the patient that he can use Tums intermittently for symptomatic relief until we can figure out a surgical approach for the hiatal hernia. Assessment and Plan: 1. As per discharge assessments noted 2. Disposition: Patient is discharged home. 3. Condition on discharge, stable and improved. 4. Diet: regular diet/diabetic diet 5. Activities: resume normal activities, I encouraged the patient to continue to quit smoking. He has done very well cutting back. Hopefully this can continue. 6. Follow-Up: 1. See Dr. Powell in 1 week 2. 7. Medications at the Time of Discharge: Home Medications Medication Instructions Recorded Confirmed Type Urine Acetone Test,Strips 1 each QAM #1 box 08/21/15 01/20/17 Clinic [Ketostix Reagent] Blood Sugar Diagnostic [Contour 1 each MC Q2-3H #300 strip 09/26/15 01/20/17 Clinic Next] Blood Sugar Diagnostic [Contour 8 - 10 each MC QD #300 strip 09/26/15 01/20/17 Clinic Next] Lisinopril 1 tab PO BID #60 tab 07/17/16 01/20/17 Clinic Amitriptyline HCl 1 tab PO QHS #30 tab 09/08/16 01/20/17 Clinic Amlodipine Besylate 5 mg PO BID #60 tab 09/08/16 01/20/17 Clinic Clopidogrel Bisulfate [Plavix] 75 mg PO DAILY #90 tab 10/03/16 01/20/17 Clinic Nicotine [Nicotine Patch] 21 mg TD QD #30 patch 10/09/16 01/20/17 Clinic Atorvastatin Calcium [Lipitor] 80 mg PO QPM #90 tablet 11/07/16 01/20/17 Clinic Tadalafil [Cialis] 1 tab PO DAILY #30 tab 12/08/16 01/20/17 Clinic Insulin Glargine SoloStar Inj 35 unit SQ AC BK #1 ml 01/21/17 Rx [Lantus SoloStar Inj] Insulin Lispro Flexpen Inj 8 unit SUBCUT AC #5 insuln.pen 01/21/17 Rx [HumaLOG Flexpen Inj] Lansoprazole [Prevacid] 30 mg PO BID #180 cap 01/21/17 Rx 8. Time, care, counseling and coordination of care for this discharge is greater than 30 minutes. Exam - Vitals Vital Signs: Vital Signs Temperature 97.8 F Temperature Source Temporal Artery Scan Pulse Rate [Telemetry] 66 Pulse Rate [Apical] 58 Pulse Rate [Pulse Oximeter] 67 Pulse Rate 60 Respiratory Rate 22 Blood Pressure [Left Arm] 151/100 Blood Pressure [Right Arm] 156/102 Pulse Ox 93 Oxygen Delivery Method Room Air Height 6 ft 1 in Weight 189 lb 6.4 oz - General General Appearance: POSITIVE: No Acute Distress, Cooperative - Head Head Exam: POSITIVE: Normal Inspection, Normocephalic, Atraumatic - Eye Eye Exam: POSITIVE: No Scleral Icterus - Respiratory Respiratory Exam: POSITIVE: Clear to Auscultation - Bilaterally, Breathing Non Labored - Cardiovascular Cardiovascular Exam: POSITIVE: RRR, No Murmur, No Clicks, No Gallops, No Rubs, No JVD - GI/Abdominal GI/Abdominal Exam: POSITIVE: Normal Bowel Sounds, Non Tender, Non Distended, Soft - Extremities Extremities Exam: POSITIVE: No Clubbing Present, No Edema Present, No Cyanosis Present - Neurological Neurological Exam: POSITIVE: Alert, Oriented x 3, No Facial Droop, Speech Intact / Clear, Moves All Extremities Equally - Psychiatric Psychiatric Exam: POSITIVE: Normal Affect, Normal Mood Data Perinent Studies: Bedside Blood Glucose Finger Stick Blood Glucose 218 Finger Stick Blood Glucose 231 Finger Stick Blood Glucose 161 Finger Stick Blood Glucose 219 Finger Stick Blood Glucose 227 Finger Stick Blood Glucose 172 Finger Stick Blood Glucose 125 Finger Stick Blood Glucose 153 Finger Stick Blood Glucose 149 Finger Stick Blood Glucose 143 Finger Stick Blood Glucose 143 Finger Stick Blood Glucose 123 Finger Stick Blood Glucose 106 Finger Stick Blood Glucose 111 Finger Stick Blood Glucose 141 Finger Stick Blood Glucose 214 Finger Stick Blood Glucose 204 Finger Stick Blood Glucose 96 Finger Stick Blood Glucose 57 Finger Stick Blood Glucose 51 Finger Stick Blood Glucose 136 Finger Stick Blood Glucose 136 Finger Stick Blood Glucose 337 Finger Stick Blood Glucose 209 Finger Stick Blood Glucose 170 Finger Stick Blood Glucose 105 Finger Stick Blood Glucose 89 Finger Stick Blood Glucose 137 Finger Stick Blood Glucose 113 Finger Stick Blood Glucose 162 Finger Stick Blood Glucose 243 Finger Stick Blood Glucose 223 Finger Stick Blood Glucose 223 Finger Stick Blood Glucose 275 Finger Stick Blood Glucose 319 Finger Stick Blood Glucose 440 Finger Stick Blood Glucose 440 Finger Stick Blood Glucose 461 Laboratory Results 01/20/17 01/20/17 01/20/17 Range/Units 02:05 02:35 04:34 WBC 11.70 H (4.8-10.8) 10^3/uL RBC 5.28 (4.70-6.10) 10^6/uL Hgb 16.1 (14.0-18.0) g/dL Hct 47.1 (42.0-52.0) % MCV 89.2 (80-90) FL MCH 30.5 (27-31) PG MCHC 34.2 (33-37) g/dL RDW Std Deviation 44.8 (39-50) fL RDW Coeff of [place] 13.9 (11.5-14.5) % Plt Count 245 (140-350) 10*3/uL MPV 10.4 (7.4-12.2) FL Immature Gran % (Auto) 0.3 (0-5) % Neut % (Auto) 87.4 H (50-80) % Lymph % (Auto) 7.1 L (10-50) % [place] % (Auto) 4.3 L (5-15) % Eos % (Auto) 0.2 (0-8) % Baso % (Auto) 0.7 (0-1) % Immature Gran # (Auto) 0.04 10*3/UL Neut # (Auto) 10.23 10*3/UL Lymph # (Auto) 0.83 10*3/uL [place] # (Auto) 0.50 (0.3-0.8) 10*3/UL Eos # (Auto) 0.02 10*3/UL Baso # (Auto) 0.08 10*3/UL WBC Morphology Comment Normal morphology (NORM) Plt Morphology Comment Normal morphology (NORM) RBC Morph Comment Normal morphology (NORM) VBG pH (7.32-7.42) VBG pCO2 (45-55) mmHg VBG HCO3 (22-26) mmol/L VBG Base Excess (-2-2) MMOL/L Sodium 135 (135-145) meq/L Potassium 5.0 (3.8-5.2) meq/L Chloride 101 (98-112) meq/L Carbon Dioxide 16 L (23-33) meq/L Anion Gap 18 (5-20) BUN 22 (7-22) mg/dL Creatinine 0.9 (0.70-1.50) mg/dL Estimated GFR > 60 (>60 ml/min/1.73m(2)) BUN/Creatinine Ratio 24.44 H (6-20) Glucose 535 H* (78-110) mg/dL Mean Blood Glucose 202.378 mg/dL Hemoglobin A1c 8.66 H (4.2-6.0) % Calculated Osmolality 306.0 H (267-292) mOsm/kg Lactic Acid 2.8 H (0.70-2.10) MMOL/L Calcium 8.9 (8.7-10.7) mg/dL Phosphorus (2.4-4.3) mg/dl Magnesium 1.8 (1.6-2.4) mg/dL Total Bilirubin 0.9 (0.3-1.2) mg/dL AST 31 (21-57) IU/L ALT 59 (21-72) IU/L Alkaline Phosphatase 61 (38-126) IU/L Total Protein 5.8 L (6.1-8.0) g/dL Albumin 3.6 (3.5-4.8) g/dL Globulin 2.2 L (2.50-4.10) g/dL Albumin/Globulin Ratio 1.60 (1.3-2.0) mg/g Lipase 33 (23-300) IU/L TSH 1.22 (0.2700-4.2000) uIU/mL Ur Collection Type Clean catch urine Urine Color Yellow Urine Clarity Clear (CLEAR) Urine pH 5.0 (5.0-8.5) Ur Specific [place] 1.010 (1.005-1.030) Urine Protein Negative (NEG) mg/dl Urine Glucose (UA) 500 (NEG) mg/dL Urine Ketones >=160 (NEG) Urine Occult Blood Negative (NEG) Urine Nitrate Negative (NEG) Urine Bilirubin Negative (NEG) Urine Acetone Urine Urobilinogen 0.2 (0.2) EU/dL Ur Leukocyte Esterase Negative (NEG) Ur Culture Indicated? Culture not set Acetone Level Small (NEGATIVE) 01/20/17 01/20/17 01/20/17 Range/Units 06:43 10:15 14:14 WBC (4.8-10.8) 10^3/uL RBC (4.70-6.10) 10^6/uL Hgb (14.0-18.0) g/dL Hct (42.0-52.0) % MCV (80-90) FL MCH (27-31) PG MCHC (33-37) g/dL RDW Std Deviation (39-50) fL RDW Coeff of [place] (11.5-14.5) % Plt Count (140-350) 10*3/uL MPV (7.4-12.2) FL Immature Gran % (Auto) (0-5) % Neut % (Auto) (50-80) % Lymph % (Auto) (10-50) % [place] % (Auto) (5-15) % Eos % (Auto) (0-8) % Baso % (Auto) (0-1) % Immature Gran # (Auto) 10*3/UL Neut # (Auto) 10*3/UL Lymph # (Auto) 10*3/uL [place] # (Auto) (0.3-0.8) 10*3/UL Eos # (Auto) 10*3/UL Baso # (Auto) 10*3/UL WBC Morphology Comment (NORM) Plt Morphology Comment (NORM) RBC Morph Comment (NORM) VBG pH (7.32-7.42) VBG pCO2 (45-55) mmHg VBG HCO3 (22-26) mmol/L VBG Base Excess (-2-2) MMOL/L Sodium 137 137 137 (135-145) meq/L Potassium 3.7 L D 3.8 3.9 (3.8-5.2) meq/L Chloride 110 111 110 (98-112) meq/L Carbon Dioxide 16 L 20 L 21 L (23-33) meq/L Anion Gap 11 6 6 (5-20) BUN 21 22 22 (7-22) mg/dL Creatinine 0.8 0.7 0.7 (0.70-1.50) mg/dL Estimated GFR > 60 > 60 > 60 (>60 ml/min/1.73m(2)) BUN/Creatinine Ratio 26.25 H 31.42 H 31.42 H (6-20) Glucose 275 H 170 H 81 (78-110) mg/dL Mean Blood Glucose mg/dL Hemoglobin A1c (4.2-6.0) % Calculated Osmolality 296.0 H 290.0 285.0 (267-292) mOsm/kg Lactic Acid 0.9 (0.70-2.10) MMOL/L Calcium 8.2 L 8.0 L 7.8 L (8.7-10.7) mg/dL Phosphorus 2.8 2.6 3.4 (2.4-4.3) mg/dl Magnesium 1.9 1.9 1.7 (1.6-2.4) mg/dL Total Bilirubin (0.3-1.2) mg/dL AST (21-57) IU/L ALT (21-72) IU/L Alkaline Phosphatase (38-126) IU/L Total Protein (6.1-8.0) g/dL Albumin (3.5-4.8) g/dL Globulin (2.50-4.10) g/dL Albumin/Globulin Ratio (1.3-2.0) mg/g Lipase (23-300) IU/L TSH (0.2700-4.2000) uIU/mL Ur Collection Type Urine Color Urine Clarity (CLEAR) Urine pH (5.0-8.5) Ur Specific [place] (1.005-1.030) Urine Protein (NEG) mg/dl Urine Glucose (UA) (NEG) mg/dL Urine Ketones (NEG) Urine Occult Blood (NEG) Urine Nitrate (NEG) Urine Bilirubin (NEG) Urine Acetone Urine Urobilinogen (0.2) EU/dL Ur Leukocyte Esterase (NEG) Ur Culture Indicated? Acetone Level Small (NEGATIVE) 01/20/17 01/20/17 01/21/17 Range/Units 18:15 23:55 05:09 WBC (4.8-10.8) 10^3/uL RBC (4.70-6.10) 10^6/uL Hgb (14.0-18.0) g/dL Hct (42.0-52.0) % MCV (80-90) FL MCH (27-31) PG MCHC (33-37) g/dL RDW Std Deviation (39-50) fL RDW Coeff of [place] (11.5-14.5) % Plt Count (140-350) 10*3/uL MPV (7.4-12.2) FL Immature Gran % (Auto) (0-5) % Neut % (Auto) (50-80) % Lymph % (Auto) (10-50) % [place] % (Auto) (5-15) % Eos % (Auto) (0-8) % Baso % (Auto) (0-1) % Immature Gran # (Auto) 10*3/UL Neut # (Auto) 10*3/UL Lymph # (Auto) 10*3/uL [place] # (Auto) (0.3-0.8) 10*3/UL Eos # (Auto) 10*3/UL Baso # (Auto) 10*3/UL WBC Morphology Comment (NORM) Plt Morphology Comment (NORM) RBC Morph Comment (NORM) VBG pH (7.32-7.42) VBG pCO2 (45-55) mmHg VBG HCO3 (22-26) mmol/L VBG Base Excess (-2-2) MMOL/L Sodium 137 138 140 (135-145) meq/L Potassium 3.6 L 3.8 4.2 (3.8-5.2) meq/L Chloride 109 111 114 H (98-112) meq/L Carbon Dioxide 21 L 21 L 21 L (23-33) meq/L Anion Gap 7 6 5 (5-20) BUN 24 H 19 15 (7-22) mg/dL Creatinine 0.7 0.7 0.6 L (0.70-1.50) mg/dL Estimated GFR > 60 > 60 > 60 (>60 ml/min/1.73m(2)) BUN/Creatinine Ratio 34.28 H 27.14 H 25.00 H (6-20) Glucose 174 H 145 H 134 H (78-110) mg/dL Mean Blood Glucose 202.045 mg/dL Hemoglobin A1c 8.65 H (4.2-6.0) % Calculated Osmolality 291.0 290.0 292.0 (267-292) mOsm/kg Lactic Acid (0.70-2.10) MMOL/L Calcium 7.6 L 7.8 L 7.7 L (8.7-10.7) mg/dL Phosphorus 3.1 3.0 (2.4-4.3) mg/dl Magnesium 2.0 2.0 (1.6-2.4) mg/dL Total Bilirubin (0.3-1.2) mg/dL AST (21-57) IU/L ALT (21-72) IU/L Alkaline Phosphatase (38-126) IU/L Total Protein (6.1-8.0) g/dL Albumin (3.5-4.8) g/dL Globulin (2.50-4.10) g/dL Albumin/Globulin Ratio (1.3-2.0) mg/g Lipase (23-300) IU/L TSH (0.2700-4.2000) uIU/mL Ur Collection Type Urine Color Urine Clarity (CLEAR) Urine pH (5.0-8.5) Ur Specific [place] (1.005-1.030) Urine Protein (NEG) mg/dl Urine Glucose (UA) (NEG) mg/dL Urine Ketones (NEG) Urine Occult Blood (NEG) Urine Nitrate (NEG) Urine Bilirubin (NEG) Urine Acetone Urine Urobilinogen (0.2) EU/dL Ur Leukocyte Esterase (NEG) Ur Culture Indicated? Acetone Level Negative (NEGATIVE) 06/28/17 06/28/17 Range/Units 05:12 07:30 WBC (4.8-10.8) 10^3/uL RBC (4.70-6.10) 10^6/uL Hgb (14.0-18.0) g/dL Hct (42.0-52.0) % MCV (80-90) FL MCH (27-31) PG MCHC (33-37) g/dL RDW Std Deviation (39-50) fL RDW Coeff of [place] (11.5-14.5) % Plt Count (140-350) 10*3/uL MPV (7.4-12.2) FL Immature Gran % (Auto) (0-5) % Neut % (Auto) (50-80) % Lymph % (Auto) (10-50) % [place] % (Auto) (5-15) % Eos % (Auto) (0-8) % Baso % (Auto) (0-1) % Immature Gran # (Auto) 10*3/UL Neut # (Auto) 10*3/UL Lymph # (Auto) 10*3/uL [place] # (Auto) (0.3-0.8) 10*3/UL Eos # (Auto) 10*3/UL Baso # (Auto) 10*3/UL WBC Morphology Comment (NORM) Plt Morphology Comment (NORM) RBC Morph Comment (NORM) VBG pH 7.37 (7.32-7.42) VBG pCO2 30 L (45-55) mmHg VBG HCO3 18 L (22-26) mmol/L VBG Base Excess -8 L (-2-2) MMOL/L Sodium (135-145) meq/L Potassium (3.8-5.2) meq/L Chloride (98-112) meq/L Carbon Dioxide (23-33) meq/L Anion Gap (5-20) BUN (7-22) mg/dL Creatinine (0.70-1.50) mg/dL Estimated GFR (>60 ml/min/1.73m(2)) BUN/Creatinine Ratio (6-20) Glucose (78-110) mg/dL Mean Blood Glucose mg/dL Hemoglobin A1c (4.2-6.0) % Calculated Osmolality (267-292) mOsm/kg Lactic Acid (0.70-2.10) MMOL/L Calcium (8.7-10.7) mg/dL Phosphorus (2.4-4.3) mg/dl Magnesium (1.6-2.4) mg/dL Total Bilirubin (0.3-1.2) mg/dL AST (21-57) IU/L ALT (21-72) IU/L Alkaline Phosphatase (38-126) IU/L Total Protein (6.1-8.0) g/dL Albumin (3.5-4.8) g/dL Globulin (2.50-4.10) g/dL Albumin/Globulin Ratio (1.3-2.0) mg/g Lipase (23-300) IU/L TSH (0.2700-4.2000) uIU/mL Ur Collection Type Urine Color Urine Clarity (CLEAR) Urine pH (5.0-8.5) Ur Specific [place] (1.005-1.030) Urine Protein (NEG) mg/dl Urine Glucose (UA) (NEG) mg/dL Urine Ketones (NEG) Urine Occult Blood (NEG) Urine Nitrate (NEG) Urine Bilirubin (NEG) Urine Acetone Negative Urine Urobilinogen (0.2) EU/dL Ur Leukocyte Esterase (NEG) Ur Culture Indicated? Acetone Level (NEGATIVE) Patient Problems - Patient Problem List (1) Insulin dependent diabetes mellitus Current Visit: Yes Status: Acute (2) Diabetic ketoacidosis Current Visit: Yes Status: Resolved Code(s): E13.10 Qualifiers: Diabetes mellitus type: type 1 Diabetes mellitus complication detail: without coma Qualified Description: Diabetic ketoacidosis without coma associated with type 1 diabetes mellitus Qualifier Code(s): (E10.10) Type 1 diabetes mellitus with ketoacidosis without coma (3) HTN, goal below 130/80 Current Visit: Yes Status: Chronic (4) Tobacco abuse Current Visit: Yes Status: Chronic (5) History of cerebrovascular accident Current Visit: Yes Status: Chronic (6) Hiatal hernia with GERD Current Visit: Yes Status: Acute
[2017-01-21 19:36] VITALS: RESP 20; TEMP 97.4
[2017-01-21] MEDS ORDERED: AmLODIPine Tab 5 MG TABLET PO SCH (21:00)
[2017-01-21] MEDS ORDERED: ATORVASTATIN 40 MG TABLET PO SCH (21:00)
[2017-01-21] MEDS ORDERED: Pantoprazole Inj 40 MG in Normal Saline Flush 10 ML IVP SCH (21:00)
[2017-01-21] MEDS ORDERED: AMITRIPTYLINE 25 MG TABLET PO SCH (21:00)
[2017-01-22] MEDS ORDERED: CLOPIDOGREL 75 MG TABLET PO SCH (09:00)
[2017-01-22] MEDS ORDERED: Patch Removal PATCH TRANSDERM SCH (09:00)
[2017-01-22] MEDS ORDERED: NICOTINE 21 MG /DAY PATCH TRANSDERM SCH (09:00)
== END 2017-01-21 19:39 | disposition home or self-care (01) | DRG 639 ==
LOC: ER 02:08 → ICU 04:05 → MED/SURG 01-21 14:10
PROVIDERS: ADMIT Family Medicine; ATTEND Family Medicine
DX: E10.10 Type 1 diabetes mellitus with ketoacidosis without coma (principal); K44.9 Diaphragmatic hernia without obstruction or gangrene; K21.9 Gastro-esophageal reflux disease without esophagitis; I10 Essential (primary) hypertension; Z72.0 Tobacco use; Z86.73 Personal history of transient ischemic attack (TIA), and cerebral infarction without residual deficits
CPT/HCPCS: 36415; 71020; 80048; 80053; 81003; 82009; 82803; 82948; 83036; 83605; 83690; 83735; 84100; 84443; 85025; 94761; 96361; 96374; 99285; J2405; J3475; J3490; J7030; J7040; J7050

== ENCOUNTER 2017-02-25 19:00 | Emergency (ER) | payer BC ==
[2017-02-25] MEDS ORDERED: NORMAL SALINE 10 ML SYRINGE FLUSH IVP PRN (19:24)
[2017-02-25] MEDS: Sodium Chloride 0.9% 1,000 ML PRIMARY IV ONE (19:40)
[2017-02-25] MEDS: Pantoprazole Inj 40 MG in Normal Saline Flush 10 ML IVP ONE (19:45)
[2017-02-25 19:50] LABS: BASOPHILS # (AUTO) 0.08 10*3/UL; BASOPHILS % (AUTO) 0.4 % (0-1); EOSINOPHILS # (AUTO) 0.03 10*3/UL; EOSINOPHILS % (AUTO) 0.2 % (0-8); HEMATOCRIT 49.1 % (42.0-52.0); HEMOGLOBIN 17.2 g/dL (14.0-18.0); LYMPHOCYTES # (AUTO) 0.62 10*3/uL; MEAN CORPUSCULAR HEMOGLOBIN 30.6 PG (27-31); MEAN CORPUSCULAR VOLUME 87.4 FL (80-90); MEAN PLATELET VOLUME 9.7 FL (7.4-12.2); MONOCYTES # (AUTO) 0.98 10*3/UL (0.3-0.8); MONOCYTES % (AUTO) 5.4 % (5-15); NEUTROPHILS # (AUTO) 16.36 10*3/UL; NEUTROPHILS % (AUTO) 90.4 % (50-80); RED BLOOD COUNT 5.62 10^6/uL (4.70-6.10)
--- NOTE | 2017-02-25 19:50 | EKG ---
[address] [address] Measurements Intervals [place] Rate: 83 P: 45 OK: 170 QRS: 76 QRSD: 102 T: 56 QT: 349 QTc: 389 Interpretive Statements SINUS RHYTHM QRS [place] 75 INTERPRETATION BASED ON A DEFAULT AGE OF 40 YEARS Compared to ECG 08/28/2016 17:27:02 Incomplete right bundle-branch block no longer present Electronically Signed On 02-26-17 13:12:06 MDT by Last Fierro MD [email or web address]
[2017-02-25 19:51] LABS: PLATELET MORPHOLOGY COMMENT NORMAL MORPHOLOGY (NORM); RBC MORPHOLOGY COMMENT NORMAL MORPHOLOGY (NORM); WBC MORPHOLOGY COMMENT NORMAL MORPHOLOGY (NORM)
[2017-02-25 20:00] LABS: LIPASE 14 IU/L (23-300)
[2017-02-25 20:04] LABS: BLOOD UREA NITROGEN 12 mg/dL (7-22); BUN/CREATININE RATIO 17.14 (6-20); C-REACTIVE PROTEIN 0.7 mg/dL (0.0-0.9); CALCIUM 8.9 mg/dL (8.7-10.7); EST GLOMERULAR FILTRATION > 60 (>60 ml/min/1.73m(2)); MAGNESIUM 1.6 mg/dL (1.6-2.4); SERUM ALBUMIN 3.7 g/dL (3.5-4.8)
[2017-02-25 20:08] VITALS: RESP 18; TEMP 98.8
[2017-02-25 20:16] LABS: TROPONIN I < 0.012 ng/mL (< 0.040)
--- NOTE | 2017-02-25 20:27 | DI ---
XR CXR 2VW PA/LAT,02/25/2017 7:24 PM: Clinical History: Chest pain Previous Exam: January 20, 2017 Findings: PA and lateral views of the chest are obtained, and demonstrate a stable hiatal hernia. There is new density within the left lung base. Skeletal structures are unremarkable. There is no evidence of pneumothorax. The cardiomediastinum is also unremarkable. Impression: New density within the left lower lobe worrisome for a left lower lobe pneumonia.
--- NOTE | 2017-02-25 21:33 | DI ---
CT CHEST W/CONTRAST,02/25/2017 8:35 PM: Clinical History: Shortness of breath. Previous Exam: None at this facility. Findings: Multiple helically acquired CT images are obtained through the chest, abdomen and pelvis following th e intravenous administration of 70 cc of Isovue 300, and demonstrate airspace disease within the left upper lobe and the left lower lobe. There is a large hiatal hernia. The heart and mediastinum is unremarkable. The thyroid is also unremarkable. The abdomen and pelvis demonstrates a normal liver, gallbladder, spleen, adrenals and kidneys are unr emarkable. There is no mesenteric or retroperitoneal lymphadenopathy. There is a large amount of drie d stool throughout the entire colon. A few peripheral vascular calcifications are noted. The skeletal structures are also unremarkable. The aorta is unremarkable. There is mild levoscoliosis of the mid lumbar spine. Impression: Airspace disease within the left upper lobe and lower lobe most likely representing early pneumonia. No acute intra-abdominal pathology.
[2017-02-25 22:06] LABS: BILIRUBIN,URINE NEGATIVE (NEG); CLARITY,URINE CLEAR (CLEAR); COLOR,URINE YELLOW; GLUCOSE, URINE (UA) 500 mg/dL (NEG); NITRATE,URINE NEGATIVE (NEG); OCCULT BLOOD,URINE NEGATIVE (NEG); PH,URINE 6.5 (5.0-8.5); PROTEIN,URINE NEGATIVE (NEG); UROBILINOGEN,URINE 0.2 EU/dL (0.2)
[2017-02-25 22:10] LABS: SQUAMOUS EPITHELIAL CELL,UR FEW; URINE SAMPLE TYPE VOIDED SPECIMEN; WBC,URINE 20-25
[2017-02-25] MEDS ORDERED: CIPROFLOXACIN 500 MG TABLET PO ONE (22:40)
[2017-02-25] MEDS ORDERED: CIPROFLOXACIN 500 MG TABLET PO SCH (23:00)
--- NOTE | 2017-02-26 01:41 | PDOC ---
General Adult HPI - General Chief Complaint: General Medical Stated Complaint: HIATAL HERNIA PAIN Date Seen by Provider: 02/25/17 Time Seen by Provider: 19:13 Source: POSITIVE: Patient Exam Limitations: POSITIVE: No limitations Nurse's Notes Reviewed & Considered: Yes - History of Present Illness Initial Comment: The patient is a 51-year-old male. Patient states that today he is noted some pleuritic chest discomfort over the left side of the chest and increased cough. He states that he has also had some vague lower abdominal discomfort, right greater than left; he has had an appendectomy. He also complains of discomfort over the lateral aspect of both hemithoraces. He states that he awoke about 2 hours [employer] with some stomach contents in his mouth. Patient has a history of hiatal hernia and states he is scheduled for surgical repair of this. Patient takes Prevacid. History of type II diabetes mellitus. Patient states he is allergic to penicillin. Have you received a tetanus shot in the past 10 years?: Yes Body Location Affected: REPORTS: Chest, Abdomen Timing: REPORTS: Gradual Duration: <24 hours Severity: Moderate Quality: REPORTS: "Pain" (Pleuritic pain left anterior thorax with cough) Context: REPORTS: None Modifying Factors: improves with: Coughing Similar Symptoms Previously: No Recent Care Received: REPORTS: Denies Any Prior Injuries Related to Current Complaint?: No - Patient Home Medications Home Medications: Home Medications Urine Acetone Test,Strips [Ketostix Reagent] 1 each QAM #1 box 08/21/15 Blood Sugar Diagnostic [Contour Next] 1 each Q2-3H #300 strip 09/26/15 Blood Sugar Diagnostic [Contour Next] 8 - 10 each QD #300 strip 09/26/15 Lisinopril 1 tab PO BID #60 tab 07/17/16 Amitriptyline HCl 1 tab PO QHS #30 tab 09/08/16 Amlodipine Besylate 5 mg PO BID #60 tab 09/08/16 Clopidogrel Bisulfate [Plavix] 75 mg PO DAILY #90 tab 10/03/16 Nicotine [Nicotine Patch] 21 mg TD QD #30 patch 10/09/16 Atorvastatin Calcium [Lipitor] 80 mg PO QPM #90 tablet 11/07/16 Tadalafil [Cialis] 1 tab PO DAILY #30 tab 12/08/16 Insulin Glargine SoloStar Inj [Lantus SoloStar Inj] 35 unit SQ AC BK #1 ml 01/21 Insulin Lispro Flexpen Inj [HumaLOG Flexpen Inj] 8 unit SUBCUT AC #5 insuln.pen 01/21/17 Lansoprazole [Prevacid] 30 mg PO BID #180 cap 01/21/17 - Patient Allergies Allergies/Adverse Reactions: Allergies Allergy/AdvReac Type Severity Reaction Status Date / Time Penicillins Allergy Anaphylaxis Verified 02/25/17 19:27 Past Medical History - heen HEENT History: Denies History Cardiovascular History: Denies History Respiratory History: Denies History Additional Respiratory History: SMOKER Gastrointestinal History: GERD, Hiatal Hernia Genitourinary History: Denies History Endocrine History: Type 1 Diabetes Musculoskeletal History: Denies History Neurological History: Denies History Blood Disorders: Denies History Psychiatric History: Denies History Male Reproductive History: Denies History Cancer History: Denies History In Past Year Been Physically Harmed or Verbally Threatened: No History of MDRO: No Tobacco Use: Former Smoker Alcohol Use: None Substance Use Type: None Previous Surgical History: Yes Type / Date of Surgery: APPy, LEFT HAND SURGERY Anesthesia Reactions: No Malignant Hyperthermia: No Significant Family History: No pertinent family hx Past Medical History Reviewed: Reviewed - No Changes ROS - Limitations ROS Limitations: No Limitations Constitution: REPORTS: Denies Symptoms Cardiovascular: REPORTS: Chest Pain Respiratory: REPORTS: Cough Productive, Hurts To Breathe Neurological: REPORTS: Denies Neuro Symptoms Gastrointestinal: REPORTS: Abdominal Pain (Right lower part of abdomen) Endocrine: REPORTS: Denies Symptoms Musculoskeletal: REPORTS: Denies MS Symptoms Genitourinary: REPORTS: Denies Symptoms Eyes: REPORTS: Denies Symptoms ENT: REPORTS: Denies Symptoms Skin: REPORTS: Denies Skin Symptoms Lympathic: REPORTS: Denies Lympathic Symptoms Immunologic: POSITIVE: Denies Symptoms Psychiatric: POSITIVE: Denies Psych Symptoms General Adult Exam - General Appearance General Appearance: POSITIVE: Alert, Cooperative, No Acute Distress, No Evidence of Trauma - HEENT HEENT: POSITIVE: Head Inspection Nml, Eyes Inspection Nml, Ears Inspection Nml, Nose Inspection Nml, Oral/Dental Inspect. Nml, Pharynx Inspect. Nml, PERRL, EOMI - Pupils Pupil Size: 4 mm: Bilateral (PERRLA) - Neck Neck: POSITIVE: Normal Inspection, Thyroid Normal - Respiratory Respiratory: POSITIVE: Rhonchi (Right) - Cardiovascular Cardiovascular: POSITIVE: Regular Rate & Rhythm, No Murmur, No Gallop, PMI Normal Peripheral Pulses: Radial (R): 2+, Radial (L): 2+ - Abdomen Abdomen: Soft: (All Quadrants), Normal Bowel Sounds: (All Quadrants), Denies Tenderness: (LLQ), (LUQ), (RUQ), No Splenomegaly: (All Quadrants), No Hepatomegaly: (All Quadrants), No Guarding: (All Quadrants), No Rebound: (All Quadrants), No Palpable Pulse: (All Quadrants), No Palpabale Mass: (All Quadrants), No Distention: (All Quadrants), No Rigidity: (All Quadrants), Tenderness Noted: (RLQ) Additional Abdominal Details: Abdominal examination shows bowel sounds to be active. Patient expresses some discomfort over the suprapubic area and right lower quadrant. No masses, organomegaly or rebound. - Back Back: POSITIVE: Normal Inspection - Skin Skin: POSITIVE: Normal Color, Warm, Dry, No Rash - Extremities Extremity: Non-Tender: (All Extremities), Normal ROM: (All Extremities), Normal Inspection: (All Extremities) - Neurological / Psychological Neurological: POSITIVE: Oriented X3, traveling nurse Normal As Tested, Motor Normal, Sensation Normal, 5, 6 General Adult Progress - Results Reviewed by me Xrays/CTs/US Reviewed by me: Yes Discussed with Radiologist: Yes Radiology Findings: Chest x-ray shows probable infiltrate in left lower lung. CT scan of chest shows left upper and left lower infiltrates. CT scan abdomen and pelvis with IV contrast normal. Lab Results Reviewed: Yes Lab Results:: Laboratory Results 02/25/17 02/25/17 02/25/17 Range/Units 19:43 21:40 22:02 WBC 18.10 H (4.8-10.8) 10^3/uL RBC 5.62 (4.70-6.10) 10^6/uL Hgb 17.2 (14.0-18.0) g/dL Hct 49.1 (42.0-52.0) % MCV 87.4 (80-90) FL MCH 30.6 (27-31) PG MCHC 35.0 (33-37) g/dL RDW Std Deviation 44.0 (39-50) fL RDW Coeff of [place] 13.7 (11.5-14.5) % Plt Count 233 (140-350) 10*3/uL MPV 9.7 (7.4-12.2) FL Immature Gran % (Auto) 0.2 (0-5) % Neut % (Auto) 90.4 H (50-80) % Lymph % (Auto) 3.4 L (10-50) % [place] % (Auto) 5.4 (5-15) % Eos % (Auto) 0.2 (0-8) % Baso % (Auto) 0.4 (0-1) % Immature Gran # (Auto) 0.03 10*3/UL Neut # (Auto) 16.36 10*3/UL Lymph # (Auto) 0.62 10*3/uL [place] # (Auto) 0.98 H (0.3-0.8) 10*3/UL Eos # (Auto) 0.03 10*3/UL Baso # (Auto) 0.08 10*3/UL WBC Morphology Comment Normal morphology (NORM) Plt Morphology Comment Normal morphology (NORM) RBC Morph Comment Normal morphology (NORM) D-Dimer 0.31 (0.00-0.59) mg/L Sodium 138 (135-145) meq/L Potassium 3.8 (3.8-5.2) meq/L Chloride 107 (98-112) meq/L Carbon Dioxide 24 (23-33) meq/L Anion Gap 7 (5-20) BUN 12 (7-22) mg/dL Creatinine 0.7 (0.70-1.50) mg/dL Estimated GFR > 60 (>60 ml/min/1.73m(2)) BUN/Creatinine Ratio 17.14 (6-20) Glucose 219 H (78-110) mg/dL Calculated Osmolality 292.0 (267-292) mOsm/kg Calcium 8.9 (8.7-10.7) mg/dL Magnesium 1.6 (1.6-2.4) mg/dL Total Bilirubin 0.7 (0.3-1.2) mg/dL AST 40 (21-57) IU/L ALT 56 (21-72) IU/L Alkaline Phosphatase 56 (38-126) IU/L CK-MB (CK-2) (0.00-5.00) NG/ML Troponin I < 0.012 < 0.012 (< 0.040) ng/mL C-Reactive Protein 0.7 (0.0-0.9) mg/dL Total Protein 6.3 (6.1-8.0) g/dL Albumin 3.7 (3.5-4.8) g/dL Globulin 2.6 (2.50-4.10) g/dL Albumin/Globulin Ratio 1.40 (1.3-2.0) mg/g Amylase 38 (30-110) U/L Lipase 14 L (23-300) IU/L Ur Collection Type Voided specimen Urine Color Yellow Urine Clarity Clear (CLEAR) Urine pH 6.5 (5.0-8.5) Ur Specific [place] 1.010 (1.005-1.030) Urine Protein Negative (NEG) mg/dl Urine Glucose (UA) 500 (NEG) mg/dL Urine Ketones Negative (NEG) Urine Occult Blood Negative (NEG) Urine Nitrate Negative (NEG) Urine Bilirubin Negative (NEG) Urine Urobilinogen 0.2 (0.2) EU/dL Ur Leukocyte Esterase Trace (NEG) Urine RBC None (NONE) /hpf Urine WBC 20-25 (NONE) Ur Squamous Epith Cells Few (NONE) Ur Renal Epithelial Cell None (NONE) Urine Crystals None Urine Bacteria None (NONE) Urine Casts None (NONE) Urine Mucus None (NONE) Urine Trichomonas None (NONE) Urine Yeast None (NONE) Ur Culture Indicated? Culture set EKG Interpreted/Reviewed By Me:: Yes (normal) EKG Interpretation:: POSITIVE: Normal Sinus Rhythm, Normal Rate, Normal Intervals, Normal [place], Normal QRS, Normal ST/T - Patient's Progress Re-Examine Time: 22:10 Re-Examine Comment: Unchanged Status: POSITIVE: Unchanged, Improved, Re-Examined Antibiotics Given: Yes (Cipro, 500 mg every 12 hours.) Quality Measure Initiative: CP/AMI: POSITIVE: EKG, ASA Quality Measure Initiative: CAP: POSITIVE: SaO2, VS, Antibiotic(s), BC, CXR or CT - Consult Counseled: POSITIVE: Patient, RE: Lab Results, RE: Radiology Results, RE: DX, RE : Need for F/U Patient Care Time - Estimated PCT Patient Care Time (In Minutes): 60 Vital Signs - Recent Vital Signs Vital Signs: Vital Signs (Last 8 hours) Temp Pulse Resp BP Pulse Ox 02/25/17 19:00 98.8 F 93 18 135/86 95 - VS Reviewed Vital Signs Reviewed: Yes Discharge Clinical Impression: Pneumonia, Urinary tract infection Discharge Disposition: Discharged to Home Condition: Stable Patient Instructions Given at Discharge: Urinary Tract Infection in Men (ED), Pneumonia (ED) Additional Instructions: Cipro, one every 12 hours. Increase fluids. Continue your GERD medicine. Follow-up with your primary care provider. Return here anytime if condition worsens in any way. Follow Up With: BLAIR COSTA [Primary Care Provider] - (Instructions as above. Follow-up with your primary care provider. Return here anytime if condition worsens in any way.)
== END 2017-02-25 22:47 ==
LOC: ER 19:00
DX: J18.9 Pneumonia, unspecified organism (principal); N39.0 Urinary tract infection, site not specified; R05 Cough; R10.31 Right lower quadrant pain; Z79.4 Long term (current) use of insulin
CPT/HCPCS: 36415; 71020; 71260; 74177; 80053; 81001; 81003; 82150; 82553; 83690; 83735; 84484; 85025; 85379; 86140; 87040; 87088; 93005; 93010; 96374; 99284 ×2; J3490; J7030